=== PATIENT | male | born 1960 | race Caucasian/White ===

== ENCOUNTER → 2020-04-13 13:13 | Outpatient (BNVA) | payer BC, SELFPAY | PROVIDERS: PCP Internal Medicine; Referring Provider Internal Medicine; Visit Provider Internal Medicine Cardiovascular Disease | DX: Z76.89 Persons encountering health services in other specified circumstances (principal) ==

== ENCOUNTER → 2020-10-11 09:02 | Outpatient (BNVA) | payer BC, SELFPAY | PROVIDERS: Visit Provider Hospitalist ==

== ENCOUNTER → 2021-04-11 08:50 | Outpatient (BNVA) | payer BC, SELFPAY | PROVIDERS: PCP Internal Medicine; Referring Provider Internal Medicine; Visit Provider Internal Medicine Cardiovascular Disease | DX: I10 Essential (primary) hypertension (principal); R06.00 Dyspnea, unspecified | CPT/HCPCS: 93005 ==

== ENCOUNTER 2021-06-12 06:50 | Outpatient (REF) | payer BC, SELFPAY ==
[2021-06-12 07:04] LABS: MANUAL DIFF FLAG NO
[2021-06-12 07:19] LABS: Basophils Absolute Auto 0.1 X10*3/uL (0.0-0.2); Basophils Percent Auto 1.1 % (0-2); Eosinophils Absolute Auto 0.4 X10*3/uL (0.0-0.4); Eosinophils Percent Auto 7.3 % (0-4); Hematocrit 46.1 % (42.0-52.0); Hemoglobin 15.1 g/dl (14.0-18.0); Imm Gran Abs Auto 0.01 X10*3/uL (0.00-0.03); Imm Gran Pct Auto 0.2 % (0.0-0.4); Lymphocytes Absolute Auto 2.3 X10*3/uL (1.2-4.9); Lymphocytes Percent Auto 43.7 % (20-40); Mean Corpuscular HGB Conc 32.8 g/dl (31.0-36.0); Mean Corpuscular Hemoglobin 28.4 pg (27.0-33.0); Mean Corpuscular Volume 86.8 fL (80.0-98.0); Mean Platelet Volume 11.1 fL (9.4-12.4); Monocytes Absolute Auto 0.5 X10*3/uL (0.1-1.2); Monocytes Percent Auto 10.1 % (2-11); Neutrophils Percent Auto 37.6 % (45-73); Platelet Count 206 X10*3/uL (160-400); Red Blood Count 5.31 X10*6/uL (4.60-5.80); Red Cell Distribution Width 12.8 % (11.0-16.0); White Blood Count 5.2 X10*3/uL (4.8-10.8)
[2021-06-12 07:30] LABS: Alanine Aminotransferase 23 U/L (0-40); Albumin Level 4.5 g/dL (3.5-5.0); Alkaline Phosphatase 78 U/L (39-117); Anion Gap 10 (12-20); Aspartate Amino Transferase 20 U/L (5-37); Bilirubin Total 0.6 mg/dL (0.0-1.0); Blood Urea Nitrogen 14 mg/dL (9-16); Calcium 9.9 mg/dL (8.4-10.2); Carbon Dioxide 30 mmol/L (22-29); Chloride 105 mmol/L (96-108); Cholesterol 247 mg/dL; Estimated Glomerular Filt Rate > 60; Glucose Random 97 mg/dL (60-115); HDL Cholesterol 50 mg/dL; LDL Cholesterol Calculated 181 mg/dl; Sodium 141 mmol/L (135-145); Total Protein 7.6 g/dL (6.5-8.0); Triglycerides 84 mg/dL
[2021-06-12 07:51] LABS: Prostate Specific Antigen Scr 1.72 ng/mL (<0.05-4.0)
[2021-06-12 07:53] LABS: Estimated Average Glucose 103 mg/dL; Hemoglobin A1c % 5.2 %
== END 2021-06-12 06:51 | disposition home or self-care (01) ==
LOC: HO.LAB 06:50
PROVIDERS: PCP Internal Medicine; Visit Provider Physician Assistant
DX: Z00.01 Encounter for general adult medical examination with abnormal findings (principal); Z12.5 Encounter for screening for malignant neoplasm of prostate
CPT/HCPCS: 36415; 80053; 80061; 83036; 84153; 85025

== ENCOUNTER 2021-06-19 12:22 | Outpatient (REF) | payer BC, SELFPAY ==
--- NOTE | ~2021-06-19 | CT_ITS ---
EXAMINATION: CT ABDOMEN AND PELVIS WITH CONTRAST CLINICAL INFORMATION: Lower abdominal pain. COMPARISON: Previous CT of the abdomen and pelvis August 2016. TECHNIQUE: Multidetector volumetric images were obtained from the superior aspect of the liver through the pubic symphysis following administration 85 mL of Omnipaque 350 intravenous contrast. Sagittal and coronal reformatted images were obtained on the technologist's workstation. Oral contrast: Yes This CT examination was performed using dose optimization techniques as appropriate, variously including the following: *Automated exposure control *Adjustment of mA and/or kV according to patient size (this includes techniques or standardized protocols for targeted exams where dose is matched to indication/reason for exam; i.e. extremities or head) *Use of iterative reconstruction technique DLP: 491 mGy-cm FINDINGS: LUNG BASES: There is a new 5 x 7 mm nodular density in the peripheral right lower lobe. Axial image 6 series 3. On sagittal and coronal reconstructed images , this is linear and may correspond to area of atelectasis. LIVER, GALLBLADDER, AND BILIARY TREE: The liver is normal in size, shape, and attenuation. No focal hepatic lesion or biliary ductal dilatation is present. The gallbladder is unremarkable with no evidence of radiopaque gallstones, gallbladder wall thickening, or obvious pericholecystic inflammatory changes. PANCREAS: Unremarkable. SPLEEN: Unremarkable. ADRENAL GLANDS: Unremarkable. KIDNEYS AND URETERS: The kidneys are normal in size, shape, and attenuation. No hydronephrosis, hydroureter, or calculi seen. No perinephric stranding. BLADDER: Not optimally distended. GASTROINTESTINAL TRACT: Surgical staple line seen in the proximal sigmoid colon. The small and large bowel are otherwise unremarkable. The appendix is unremarkable. There is question of wall thickening of proximal stomach. This is similar-appearing to 2017 exam and may be related to the contour of the stomach. ABDOMINAL WALL: Bilateral inguinal hernias containing fat, left greater than right. Small umbilical hernia containing fat. LYMPH NODES: Normal. VASCULAR: Unremarkable. PELVIC VISCERA: Unremarkable. OSSEOUS STRUCTURES: Degenerative changes of the spine. CT/CT abdomen pelvis w con IMPRESSION: Bilateral inguinal hernias containing fat. Small umbilical hernia containing fat. Postsurgical changes to the proximal sigmoid colon. Question wall thickening of the proximal stomach. Similar appearing to 2017 exam and may be related to the contour of the stomach. This could be better evaluated with endoscopy or upper GI clinically indicated. Fleischner guidelines were followed.
[2021-06-19] MEDS: Barium Sulfate Oral (Berry) 450 ML ORAL.SUSP 900 ML PO (15:35)
[2021-06-19] MEDS: iohexoL 350 MG/ML 100 ML INFUS..BTL IV (15:36)
== END 2021-06-19 12:23 | disposition home or self-care (01) ==
LOC: HO.CT 12:22
PROVIDERS: Visit Provider Physician Assistant
DX: R10.30 Lower abdominal pain, unspecified (principal)
CPT/HCPCS: 74177; Q9967

== ENCOUNTER 2021-10-12 07:59 | Outpatient (REF) | payer BC, SELFPAY ==
--- NOTE | 2021-10-12 14:24 | PFT_ITS ---
Forced vital capacity 97% and FEV1 73%. FEV1/FVC ratio is 57, which is moderately decreased. FEF 25-75 36% and MVV is 85%. Post-bronchodilator therapy, there is small, but significant improvement in FEV1 and FEF 25-75. Total lung capacity 100%. Residual volume 101%. Diffusion capacity 84%. CONCLUSION: Moderately severe obstructive airway disorder. Partial reversibility after bronchodilator therapy is noted. 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 Clinical correlation is recommended. MD VIOLETA Trujillo/MODL / [id number]
== END 2021-10-12 08:00 | disposition home or self-care (01) ==
LOC: HO.RESP 07:59
PROVIDERS: PCP Internal Medicine; Visit Provider Hospitalist
DX: J44.9 Chronic obstructive pulmonary disease, unspecified (principal)
CPT/HCPCS: 94060; 94727; 94729

== ENCOUNTER 2021-10-23 10:12 | Outpatient (REF) | payer BC, SELFPAY ==
--- NOTE | ~2021-10-23 | CT_ITS ---
EXAMINATION: CT CHEST WITHOUT CONTRAST CLINICAL INFORMATION: Abnormal lung findings. COMPARISON: CT chest 08/27/2019 TECHNIQUE: Multidetector volumetric CT imaging of the chest was done. Axial MIP volume rendering provided. Sagittal and coronal reformatted images were obtained. This CT examination was performed using dose optimization techniques as appropriate, variously including the following: *Automated exposure control *Adjustment of mA and/or kV according to patient size (this includes techniques or standardized protocols for targeted exams where dose is matched to indication/reason for exam; i.e. extremities or head) *Use of iterative reconstruction technique DLP: 211 mGy-cm FINDINGS: TRIMMER OPERATOR: Unremarkable. LUNGS: There is centrilobular emphysema without acute pneumonic process. There is a 2 mm calcified right apical nodule axial image 90/7, 7 mm pleural-based noncalcified nodule right lower lobe axial image 240/7, 2 mm calcified nodule left lower lobe, 2 mm calcified nodule right lower lobe axial image 396/7. MEDIASTINUM: The thyroid lobes are symmetric and normal. The central trachea and the bronchi widely patent. Heart size and the great vessels are normal caliber. No pericardial effusion seen. Mild coronary artery calcifications are seen. PLEURA: There is no pleural effusion. No pleural mass or thickening. AXILLA: Small shotty lymph nodes are seen in the axilla. UPPER ABDOMEN: Visualized liver, spleen, pancreas and bilateral adrenal glands are unremarkable. OSSEOUS STRUCTURES: No aggressive lytic or sclerotic process seen. There is mild spondylosis lower dorsal spine. CT/CT chest wo con IMPRESSION: Centrilobular emphysema with small calcified and solitary noncalcified right lower lobe nodules. They are stable to last exam. No new nodules seen. Fleischner guidelines were followed.
== END 2021-10-23 10:13 | disposition home or self-care (01) ==
LOC: HO.CT 10:12
PROVIDERS: PCP Internal Medicine; Visit Provider Hospitalist
DX: R91.8 Other nonspecific abnormal finding of lung field (principal); J44.9 Chronic obstructive pulmonary disease, unspecified
CPT/HCPCS: 71250

== ENCOUNTER 2021-12-11 05:59 | Day surgery (SDC) | payer BC, SELFPAY ==
[2021-12-05 13:26] VITALS: BMI 29.7
--- NOTE | 2021-12-10 09:08 | HO.ANESPROP2 ---
Documented by User: Arlyn Nguyen NP 12/10/21 09:11 HPI - Anesthesia Eval Consult details Narrative: 61yo M for Bilateral Hernia Repair Inguinal PMFSH Active Problems Active Problems: All Active Problems (Updated 12/05/21 @ 13:24 by Olya Bella RN) Hypertension (Acute) [place] (dyspnea on exertion) (Acute) Hyperlipidemia (Acute) Inguinal hernia (Acute) Bilateral inguinal hernia (Acute) Pulmonary nodules (Acute) COPD (chronic obstructive pulmonary disease) (Acute) Past Medical History Medical History (Updated 12/05/21 @ 13:24 by Olya Bella RN) Bilateral inguinal hernia Chest pain COPD (chronic obstructive pulmonary disease) Diverticulitis Pulmonary nodules Family History Family History Father Prostate cancer Mother Heart problem CVD (cardiovascular disease) Arthritis Surgical History Surgical History (Updated 12/05/21 @ 13:21 by Olya Bella RN) H/O colonoscopy H/O hemorrhoidectomy H/O rotator cuff surgery History of colon resection History of hand surgery Hx of cardiac cath Social History Social History Alcohol intake: current Alcohol intake frequency: a few times a week Alcohol type: beer Patient Tobacco Use Status: Former Tobacco user Quit Date: 2000 Years Smoked: 35 +/- Use of substances other than those prescribed or required for medical reasons: Yes Substance Use Frequency: Daily Are you DNR?: No Advance Directives: No Advance Directives Information Provided: Yes Meds Allergies Allergy/AdvReac Type Severity Reaction Status Date / Time No Known Allergies Allergy Verified 10/12/21 14:33 [No Known Allergies*] Home Medications Medication Instructions Recorded Confirmed Last Taken Type amlodipine 5 mg tablet 5 mg PO DAILY 04/13/20 12/05/21 12/11/21 History isosorbide mononitrate 30 mg 30 mg PO DAILY 04/13/20 12/05/21 12/11/21 History tablet,extended release 24 hr Exam Exam Date and Time: December 10, 2021 0908 Height,Weight and Vital Signs: Height 6 ft Weight 99.337 kg Narrative Narrative: EKG 04/2021 Sinus rhythm 69 beats per minute, normal axis, nonspecific T-wave changes, QT interval 437 milliseconds Per 04/2021 Cardiology visit stress testing and cardiac catheterization which did not show any significant issues.? He also a right heart catheterization because he continued to have dyspnea despite treatment for lung issues.? Right heart catheterization was also normal. Assessment and Plan Assessment Anesthesia Assessment: Chart Reviewed Documented by User: Alex Alex MD 12/11/21 16:47 [facility] Past Medical History Medical History (Updated 12/05/21 @ 13:24 by Olya Bella RN) Bilateral inguinal hernia Chest pain COPD (chronic obstructive pulmonary disease) Diverticulitis Pulmonary nodules Family History Family History Father Prostate cancer Mother Heart problem CVD (cardiovascular disease) Arthritis Family history of problems with anesthesia: No Surgical History Surgical History (Updated 12/05/21 @ 13:21 by Olya Bella RN) H/O colonoscopy H/O hemorrhoidectomy H/O rotator cuff surgery History of colon resection History of hand surgery Hx of cardiac cath History of Problems with Anesthesia: No Social History Social History Alcohol intake: current Alcohol intake frequency: a few times a week Alcohol type: beer Patient Tobacco Use Status: Former Tobacco user Quit Date: 2000 Years Smoked: 35 +/- Use of substances other than those prescribed or required for medical reasons: Yes Substance Use Frequency: Daily Are you DNR?: No Advance Directives: No Advance Directives Information Provided: Yes Meds Allergies Allergy/AdvReac Type Severity Reaction Status Date / Time No Known Allergies Allergy Verified 10/12/21 14:33 [No Known Allergies*] Home Medications Medication Instructions Recorded Confirmed Last Taken Type amlodipine 5 mg tablet 5 mg PO DAILY 04/13/20 12/05/21 12/11/21 History isosorbide mononitrate 30 mg 30 mg PO DAILY 04/13/20 12/05/21 12/11/21 History tablet,extended release 24 hr Exam Airway Mallampati Class: III TM Dist: >3cm Neck ROM: Full Partial: Upper and Lower Loose/Missing/Broken Teeth: Yes (Poor dentition overall ) Heart: S1,S2 Lungs: b/l breath sounds Assessment and Plan Assessment Anesthesia Assessment: Anesthesia Plan Discussed Final Anesthetic Review Family History of Problems with Anesthesia: No History of Problems with Anesthesia: No NPO: Yes ASA Class: III Final Preanesthetic Review: Meds/Allgs Chart Reviewed, Consent Obtained/Reviewed and Anes Risks/Benef Reviewed Patient Risk: Intermediate Procedure Risk: Intermediate Anesthetic Plan Anesthetic Plan: GA Disposition: Standard PACU
[2021-12-11] VITALS (9 sets, daily range): BP systolic 134–163; BP diastolic 69–106; PULSE 55–80; RESP 16; TEMP 36.1; O2SAT 93–98
[2021-12-11] MEDS: Lactated Ringers 1,000 ML 100 ML IVCONT (06:42)
--- NOTE | 2021-12-11 07:13 | MHC.SHP ---
Pre-Procedural Eval Section A Date of Service: 12/11/21 Section B Chief Complaint: inguinal hernia Details of Present Illness: has bilateral inguinal hernias, both reducible Relevant Family History (Specify if Yes): No Relevant Social History: Tobacco Use Present Medications: see Short Stay Collaborative assessment Medical History: Significant History (HTN, COPD) Allergies: Allergies Allergy/AdvReac Type Severity Reaction Status Date / Time No Known Allergies Allergy Verified 10/12/21 14:33 [No Known Allergies*] Review of Systems Sugical H&P ROS: Negative: Constitution, Cardiovascular, Respiratory, Neurological, Psychiatric, Hem-Onc, Allergic/Immunologic, Gastrointestinal, Genitourinary, Musculoskeletal, Integumentary, Endocrine and Eyes/Ears/Nose/Throat Exam Surgical H&P Exam: Normal: HEENT, Normal: Heart, Normal: Lungs, Normal: Extremities, Normal: Skin and Normal: Neurological and Significant Findings: Abdomen (inguinal hernia, bilateral) Plan Diagnosis/Plan: Unchanged I have reviewed the history and physical and performed a pertinent physical examination on my patient. No changes have occurred unless specified.
--- NOTE | 2021-12-11 09:16 | W.PM.OPN ---
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 He wanted these repaired. He understood the technique of repair with mesh. He was aware of the risks, benefits, and alternatives. He was brought to the operating room. HE was placed supine under general anesthesia via laryngeal mask airway. Both inguinal hernias were prepped and draped in the usual sterile fashion. A surgical time-out was done. The patient received cefazolin 2 g IV preoperatively I infiltrated the planned line of incision at left inguinal area with lidocaine 1%. I made a short incision using blade 15 and this was carried down through the full-thickness of the skin and subcutaneous fat using electrocautery. I dissected the external oblique aponeurosis and I was able to identify the external ring. I dissected the external ring to define this. I made an incision on the aponeurosis using blade 15 and extended this inferomedially to connect with the external ring. The inguinal canal was therefore entered. I applied hemostats at the edges of the divided aponeurosis. I bluntly dissected the underside of the aponeurosis to create a pocket for the mesh. I bluntly dissected the spermatic cord and its contents with my index finger until was able to pass a [place] drain around this. This [place] drain was used for retraction. I identified a large hernia on the anterior medial aspect of the cord. I bluntly dissected this off of the rest of the cord contents. I identified the vas deferens and the accompanying vessels and protected this during the dissection. I carefully the hernia contents until I was able to completely reduce this through the internal ring. This has were for an indirect hernia. I reinforced the internal ring with the plug. The plug was secured with Prolene 2 sutures to the shelving edge of the inguinal and laterally and the internal oblique superiorly and medially using the inner leaves of the plug I reinforced the floor of the canal with a keyhole mesh. The tails of the mesh were passed around the cord at the level of the internal ring and were secured together with Prolene 2 sutures. I flattened the mesh on the floor of the canal. I secured the mesh to the shelving edge of the inguinal ligament laterally, the internal oblique superiorly and medially and to the pubic ramus inferomedially. I irrigated. I removed the [place] drain. I closed the external oblique aponeurosis with a running Dexon 2-0 stitch to re-create the external ring. I reapposed the subcutaneous layer with Dexon 3-0 interrupted sutures. Skin closure was achieved with Dexon 4-0 subcuticular running sutures. I then proceeded to repair the inguinal hernia on the the right side. I repeated the same procedure as above. Again,I infiltrated the planned line of incision at left inguinal area with lidocaine 1%. I made a short incision using blade 15 and this was carried down through the full-thickness of the skin and subcutaneous fat using electrocautery. I dissected the external oblique aponeurosis and I was able to identify the external ring. I dissected the external ring to define this. I made an incision on the aponeurosis using blade 15 and extended this inferomedially to connect with the external ring. The inguinal canal was therefore entered. I applied hemostats at the edges of the divided aponeurosis. I bluntly dissected the underside of the aponeurosis to create a pocket for the mesh. I bluntly dissected the spermatic cord and its contents with my index finger until was able to pass a [place] drain around this. This [place] drain was used for retraction. I identified a large hernia on the anterior medial aspect of the cord. I bluntly dissected this off of the rest of the cord contents. I identified the vas deferens and the accompanying vessels and protected this during the dissection. I carefully the hernia contents until I was able to completely reduce this through the internal ring. This has were for an indirect hernia. I reinforced the internal ring with the plug. The plug was secured with Prolene 2 sutures to the shelving edge of the inguinal and laterally and the internal oblique superiorly and medially using the inner leaves of the plug I reinforced the floor of the canal with a keyhole mesh. The tails of the mesh were passed around the cord at the level of the internal ring and were secured together with Prolene 2 sutures. I flattened the mesh on the floor of the canal. I secured the mesh to the shelving edge of the inguinal ligament laterally, the internal oblique superiorly and medially and to the pubic ramus inferomedially. I irrigated. I removed the [place] drain. I closed the external oblique aponeurosis with a running Dexon 2-0 stitch to re-create the external ring. I reapposed the subcutaneous layer with Dexon 3-0 interrupted sutures. Skin closure was achieved with Dexon 4-0 subcuticular running sutures. I then infiltrated the incisions with Marcaine 0.5% for postop analgesia. Steri-Strips and dressings were applied. the procedure was then completed The patient tolerated procedure well. There were no complications noted. Initial and final counts of sponges and instruments were correct. Estimated blood loss was about 25 cc. The patient was extubated without difficulty and transferred to the recovery room with stable vital signs.
[2021-12-11] MEDS: oxyCODONE HCl Immed Release 5 MG TABLET PO (09:33)
== END 2021-12-11 12:17 | disposition home or self-care (01) ==
PROVIDERS: PCP Internal Medicine; Visit Provider Surgery
PROC: (CPT 49505; principal; 2021-12-11 07:30)
DX: K40.20 Bilateral inguinal hernia, without obstruction or gangrene, not specified as recurrent (principal); J44.9 Chronic obstructive pulmonary disease, unspecified; I10 Essential (primary) hypertension; R91.8 Other nonspecific abnormal finding of lung field; Z90.49 Acquired absence of other specified parts of digestive tract; Z87.19 Personal history of other diseases of the digestive system; Z79.899 Other long term (current) drug therapy; Z98.890 Other specified postprocedural states; Z87.891 Personal history of nicotine dependence
CPT/HCPCS: 49505; C1781; J0690; J1100; J2250; J2405; J3010

== ENCOUNTER → 2022-04-05 14:50 | Outpatient (BNVA) | payer OTHER, SELFPAY | PROVIDERS: PCP Internal Medicine; Visit Provider Internal Medicine | DX: S60.122A Contusion of left index finger with damage to nail, initial encounter (principal); W22.8XXA Striking against or struck by other objects, initial encounter | CPT/HCPCS: 11740; 99202 ==

== ENCOUNTER → 2022-04-29 15:42 | Outpatient (BNVA) | payer BC, SELFPAY | PROVIDERS: Visit Provider Internal Medicine Cardiovascular Disease | DX: I10 Essential (primary) hypertension (principal); R06.00 Dyspnea, unspecified | CPT/HCPCS: 93005 ==

== ENCOUNTER 2022-12-09 13:12 | Outpatient (AMB) | payer OTHER, SELFPAY ==
[2022-12-09 13:14] VITALS: BMI 32.1
--- NOTE | 2022-12-09 13:14 | MHC.OFFVIS ---
Intake Vital Signs 12/09/22 13:14 Height 5 ft 11 in Weight 230 lb BMI 32.1 Intake Visit Reasons: Abd pain from hernia surgery Intake Note: This patient presents for an assessment for discomfort status post hernia surgery. Patient c/o; testicular discomfort, 2 hernias were repair still has 1 hernia, changes in bowel habits these past days, describes pain especially when doing heavy lifting. Transplant Nurse Required: No Accompanied by: Self / Same As Patient Allergies No Known Allergies [No Known Allergies*] Allergy (Verified 12/09/22 13:21) Medication List - Last Reconciled 12/09/22 by Medhat Powell MD albuterol sulfate 90 mcg/actuation 2 inhalations inhalation Q6H PRN 30 days amlodipine 5 mg PO DAILY [id number] 100-62.5-25 mcg (Trelegy Ellipta) 1 inh inhalation DAILY 30 days isosorbide mononitrate ER 30 mg PO DAILY HPI Abd pain from hernia surgery HPI Details 62-year-old male with repair of bilateral inguinal hernias a year ago, here because of the chronic lower abdominal pain. He says that he has had some some discomfort several months. He feels that his bowel movements are different as well. He also describes discomfort in his left testicle which he also had postoperatively. He says it usually happens when he is sitting down for prolonged periods of time. He says he is up-to-date with his screening colonoscopies. He had sigmoid resection in 2017 for diverticular disease. [facility] Medical History Bilateral inguinal hernia Chest pain Chronic bilateral lower abdominal pain COPD (chronic obstructive pulmonary disease) Diverticulitis Pulmonary nodules Surgical History H/O colonoscopy H/O hemorrhoidectomy H/O hernia repair H/O rotator cuff surgery History of bilateral inguinal hernia repair (~2021) History of colon resection History of hand surgery Hx of cardiac cath Family History Father Prostate cancer Mother Heart problem CVD (cardiovascular disease) Arthritis Social History Alcohol intake: current Alcohol intake frequency: a few times a month Alcohol type: beer Patient Tobacco Use Status: Former Tobacco user Quit Date: 2000 Years Smoked: 35 +/- Review of Systems Const Denies chills and Denies fever(s) Card Denies chest pain, Denies dyspnea and Denies dyspnea on exertion Resp Denies cough, Denies dyspnea and Denies dyspnea on exertion GI Denies hematochezia and Denies change in bowel habits Denies hematuria and Denies difficulty urinating Musc Denies back pain and Denies limited range of motion Neuro Denies focal weakness and Denies convulsions Psych Denies depression and Denies mood swings Physical Exam Vital Signs: BMI result Body Mass Index 32.1 Const General: comfortable and no acute distress Orientation/consciousness: patient oriented x3 Neck Neck: Yes no lymphadenopathy Resp Auscultation: clear to auscultation bilaterally Cardio Rhythm: regular rhythm GI Other: No palpable current inguinal hernias, no testicular masses, no significant tenderness on the testicles at this time Palpation (GI): Soft to palpation, nontender and no guarding Neuro General: patient oriented x3 Assessment & Plan Assessment & Plan (1) Chronic bilateral lower abdominal pain: Code(s): R10.31 - Right lower quadrant pain; R10.32 - Left lower quadrant pain; G89.29 - Other chronic pain Plan: I do not feel any palpable hernias at this time. I will send him for CT scan to work him up for chronic lower abdominal pain. He looks well otherwise and his exam is very benign. He denies significant GI complaints. I will see him in the office to review his CT scan findings Orders: Orders CT abdomen pelvis w IV con Today G89.29 - Other chronic pain, R10.31 - Right lower quadrant pain, R10.32 - Left lower quadrant pain Blood Urea Nitrogen Today G89.29 - Other chronic pain, R10.31 - Right lower quadrant pain, R10.32 - Left lower quadrant pain Creatinine Today G89.29 - Other chronic pain, R10.31 - Right lower quadrant pain, R10.32 - Left lower quadrant pain Coding Level of Care Code Est Pt Level 3 (34240) Diagnoses Chronic bilateral lower abdominal pain R10.31; R10.32; G89.29
== END 2022-12-09 13:33 | disposition home or self-care (01) ==
PROVIDERS: Visit Provider Surgery
DX: R10.31 Right lower quadrant pain (principal); R10.32 Left lower quadrant pain; G89.29 Other chronic pain
CPT/HCPCS: 99213

== ENCOUNTER 2022-12-09 13:12 | Outpatient (REF) | payer OTHER, SELFPAY ==
[2022-12-09 15:28] LABS: Blood Urea Nitrogen 21 mg/dL (9-16); Estimated Glomerular Filt Rate > 60
== END 2022-12-09 13:13 | disposition home or self-care (01) ==
LOC: CF 13:12
PROVIDERS: PCP Family Medicine; Visit Provider Surgery
DX: R10.31 Right lower quadrant pain (principal); R10.32 Left lower quadrant pain; G89.29 Other chronic pain; R19.4 Change in bowel habit; Z79.899 Other long term (current) drug therapy
CPT/HCPCS: 36415; 82565; 84520

== ENCOUNTER 2023-01-02 07:42 | Outpatient (REF) | payer OTHER, SELFPAY ==
--- NOTE | ~2023-01-02 | CT_ITS ---
EXAMINATION: CT ABDOMEN AND PELVIS WITH CONTRAST CLINICAL INFORMATION: Right lower quadrant pain COMPARISON: Previous CT scans most recent June 2021 TECHNIQUE: Multidetector volumetric images were obtained from the superior aspect of the liver through the pubic symphysis following administration 85 mL of Omnipaque 350 intravenous contrast. Sagittal and coronal reformatted images were obtained on the technologist's workstation. Oral contrast: Yes This CT examination was performed using dose optimization techniques as appropriate, variously including the following: *Automated exposure control *Adjustment of mA and/or kV according to patient size (this includes techniques or standardized protocols for targeted exams where dose is matched to indication/reason for exam; i.e. extremities or head) *Use of iterative reconstruction technique DLP: 595 mGy-cm FINDINGS: LUNG BASES: Scarring or subsegmental atelectasis at the lung bases, right greater than left. This is similar to June 2021 exam. LIVER, GALLBLADDER, AND BILIARY TREE: The liver is normal in size, shape, and attenuation. No focal hepatic lesion or biliary ductal dilatation is present. The gallbladder is unremarkable with no evidence of radiopaque gallstones, gallbladder wall thickening, or obvious pericholecystic inflammatory changes. PANCREAS: Unremarkable. SPLEEN: Unremarkable. ADRENAL GLANDS: Unremarkable. KIDNEYS AND URETERS: The kidneys are normal in size, shape, and attenuation. No hydronephrosis, hydroureter, or calculi seen. No perinephric stranding. BLADDER: Not optimally distended. GASTROINTESTINAL TRACT: Surgical changes to the sigmoid colon with surgical staple line. Small and large bowel is otherwise unremarkable. Normal appendix. History of wall thickening of the proximal stomach versus underdistention. This is similar to previous exams ABDOMINAL WALL: Small umbilical hernia containing fat. Small bilateral inguinal hernias containing fat no longer seen. LYMPH NODES: Normal. VASCULAR: Unremarkable. PELVIC VISCERA: Unremarkable. OSSEOUS STRUCTURES: Degenerative changes of the spine. CT/CT abdomen pelvis w IV con IMPRESSION: No acute findings. Postsurgical changes to the proximal sigmoid colon. Fleischner guidelines were followed.
[2023-01-02] MEDS: iohexoL 350 MG/ML 100 ML INFUS..BTL 85 ML IV (08:35)
== END 2023-01-02 07:43 | disposition home or self-care (01) ==
LOC: HO.CT 07:42
PROVIDERS: PCP Family Medicine; Visit Provider Surgery
DX: R10.31 Right lower quadrant pain (principal); R10.32 Left lower quadrant pain; G89.29 Other chronic pain
CPT/HCPCS: 74177; Q9967

== ENCOUNTER 2023-01-13 15:32 | Outpatient (AMB) | payer OTHER, SELFPAY ==
--- NOTE | 2023-01-13 15:42 | A.OFFVIS_ITS ---
Intake Intake Visit Reasons: Follow up CT results Intake Note: This patient presents for a follow-up assessment for Ct-Scan results. Patient denies changes or complaints at this time. 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 He had undergone bilateral inguinal hernia repair over a year ago and thinks this started after that. He denies any palpable mass on the groin. He denies urinary complaints. [facility] Medical History Bilateral inguinal hernia Chest pain Chronic bilateral lower abdominal pain COPD (chronic obstructive pulmonary disease) Diverticulitis Pulmonary nodules Surgical History H/O colonoscopy H/O hemorrhoidectomy H/O hernia repair H/O rotator cuff surgery History of bilateral inguinal hernia repair (~2021) History of colon resection History of hand surgery Hx of cardiac cath Family History Father Prostate cancer Mother Heart problem CVD (cardiovascular disease) Arthritis Social History Alcohol intake: current Alcohol intake frequency: a few times a month Alcohol type: beer Patient Tobacco Use Status: Former Tobacco user Quit Date: 2000 Years Smoked: 35 +/- Review of Systems Const Denies chills and Denies fever(s) Card Denies chest pain, Denies dyspnea and Denies dyspnea on exertion Resp Denies cough, Denies dyspnea and Denies dyspnea on exertion GI Denies hematochezia and Denies change in bowel habits Denies hematuria and Denies difficulty urinating Musc Denies back pain and Denies limited range of motion Neuro Denies focal weakness and Denies convulsions Psych Denies depression and Denies mood swings Physical Exam Const General: comfortable and no acute distress Resp Effort & Inspection: normal respiratory effort Cardio Rate: regular rate GI Other: no recurrent hernia on palpation Palpation (GI): Soft to palpation, not firm, nontender and no guarding Assessment & Plan Assessment & Plan (1) Chronic bilateral lower abdominal pain: Code(s): R10.31 - Right lower quadrant pain; R10.32 - Left lower quadrant pain; G89.29 - Other chronic pain Plan: He now describes mostly left testicular pain. I reviewed his CT scan and this does not show any intraabdominal or pelvic pathology. The hernia repair sites appear intact. I explained to him that his pain may be from fibrotic changes along the inguinal canal especially with the mesh repair. He did not want any prescription for narcotic pain meds. He says he will be fine without pain meds. He can ffup on a prn basis. Coding Level of Care Code Est Pt Level 3 (00288) Diagnoses Chronic bilateral lower abdominal pain R10.31; R10.32; G89.29
== END 2023-01-13 16:11 | disposition home or self-care (01) ==
PROVIDERS: PCP Family Medicine; Visit Provider Surgery
DX: R10.31 Right lower quadrant pain (principal); R10.32 Left lower quadrant pain; G89.29 Other chronic pain
CPT/HCPCS: 99213

== ENCOUNTER → 2023-01-13 15:32 | Outpatient (BNVA) | payer OTHER, SELFPAY | PROVIDERS: PCP Family Medicine; Visit Provider Surgery ==

== ENCOUNTER 2023-03-06 11:18 | Outpatient (AMB) | payer OTHER, SELFPAY ==
[2023-03-06 13:21] VITALS: BP 142/80; PULSE 82; TEMP 36.3; O2SAT 98
--- NOTE | 2023-03-06 13:21 | MHC.OFFWIV ---
Intake Vital Signs 03/06/23 13:21 Height 5 ft 11 in BP 142/80 H Blood Pressure Location Rt brachial Position Sitting Pulse 82 Pulse Source Pulse Oximeter Temp 97.4 F Temp Source Temporal Artery Scan Pulse Oximetry (%) 98 Intake Visit Reasons: EP, Left knee pain/swelling Intake Note: pt is here for due to left knee pain/swelling Patient Tobacco Use Status: Former Tobacco user Quit Date: 2000 Allergies No Known Allergies [No Known Allergies*] Allergy (Verified 03/06/23 13:22) Do you need a note to return to daycare/school/sports/work: Yes HPI HPI Comments History of Present Illness Details The patient presents to urgent care for evaluation of left knee pain. He states that he was carrying his puppy down the stairs and tripped over his other dog and in an attempt not to injure the puppy he was carrying he twisted his body to fall on his left side and believes he twisted his upper body and may have twisted his knee. He now complains of pain in that left knee which started to swell up while he was at work. It has become more painful since the incident. [facility] Medical History (Updated 03/06/23 @ 13:26 by Soumya Sylvester DO) Pain Chronic bilateral lower abdominal pain Chest pain Diverticulitis Bilateral inguinal hernia Pulmonary nodules COPD (chronic obstructive pulmonary disease) Surgical History H/O hernia repair History of bilateral inguinal hernia repair (~2021) History of colon resection H/O colonoscopy H/O rotator cuff surgery Hx of cardiac cath H/O hemorrhoidectomy History of hand surgery Family History Father Prostate cancer Mother Heart problem CVD (cardiovascular disease) Arthritis Social History Alcohol intake: current Alcohol intake frequency: a few times a month Alcohol type: beer Patient Tobacco Use Status: Former Tobacco user Quit Date: 2000 Years Smoked: 35 +/- Physical Exam Vital Signs: Last Vital Signs Temp 97.4 F 03/06/23 13:21 Pulse 82 03/06/23 13:21 BP 142/80 H 03/06/23 13:21 Pulse Ox 98 03/06/23 13:21 Const General: cooperative and healthy appearing Orientation/consciousness: patient oriented x3 Back/Spine/Pelvis Back: No back tenderness Skin General skin exam: no rashes or lesions noted Neuro General: patient oriented x3 Extrem Other: Knee: Moderately swollen diffusely. Tender to palpation Limited range of motion. No erythema induration or abrasions. No ligamentous instability appreciated. Tenderness with palpation, medial aspect No lower extremity edema Psych Attitude: cooperative Assessment & Plan Assessment & Plan (1) Pain: Code(s): R52 - Pain, unspecified Plan X-ray of the left knee reveals no obvious fracture/dislocation. There is an irregularity to what looks like either osteophyte or sesamoid. Unclear etiology. However patient will need knee immobilizer and crutches given the extent of swelling and pain. He likely tore a ligament in his knee. Patient will need follow-up with Orthopedics. He is hooked up with [facility] and will contact them. Orders: Orders XR knee LT 3V Today R52 - Pain, unspecified Coding Level of Care Code Est Pt Level 3 (07113) Diagnoses Pain R52
== END 2023-03-06 14:42 | disposition home or self-care (01) ==
PROVIDERS: PCP Family Medicine; Visit Provider Emergency Medicine
DX: R52 Pain, unspecified (principal)
CPT/HCPCS: 99213

== ENCOUNTER 2023-03-06 13:30 | Outpatient (REF) | payer OTHER, SELFPAY | END 2023-03-06 13:31 | disposition home or self-care (01) | LOC: HO.HMGCX 13:30 | PROVIDERS: Visit Provider Emergency Medicine | DX: M25.562 Pain in left knee (principal) | CPT/HCPCS: 73562 ==

== ENCOUNTER 2023-03-19 07:23 | Outpatient (REF) | payer OTHER, SELFPAY ==
--- NOTE | ~2023-03-19 | MR_ITS ---
EXAMINATION: MR KNEE WITHOUT CONTRAST, LEFT CLINICAL INFORMATION: Left knee pain. Recent fall with swelling. COMPARISON: Radiographs 03/06/2023. MRI 05/24/2014. TECHNIQUE: MRI of the knee without contrast was performed using routine sequences on a high-field scanner. FINDINGS: MENISCI: Medial Meniscus: Small oblique undersurface tear of the posterior horn extending to the junction with the meniscal body, new from previous MRI. Lateral Meniscus: Intact. LIGAMENTS: Cruciate: Intact. Collateral: Intact. EXTENSOR MECHANISM: Intact. ARTICULAR CARTILAGE/BONE: Patellofemoral Compartment: Mild cartilage along the central patella and peripheral aspect of the lateral patellar facet. Medial Compartment: Focal partial-thickness cartilage loss with subchondral degenerative marrow changes of the weightbearing femoral condyle. Cartilage thinning and surface irregularity along the lateral aspect of the weightbearing femoral condyle. These findings are slightly less conspicuous. There is prominent marrow edema of the medial tibial spine, posteromedial to the ACL insertion which may be degenerative or posttraumatic. There may be a tiny nondisplaced avulsion fracture demonstrated on coronal image 21. Lateral Compartment: Evolution of the osteochondral lesion involving the weightbearing femoral condyle. Underlying cysts have increased although surrounding marrow edema has decreased. There is a focal concavity that has slightly worsened, and contains a small low-signal/devitalized in situ fragment. Cartilage thinning of the tibia posteriorly. JOINT FLUID AND BURSAE: Small joint effusion and Denise's cyst. There is a 10 mm chondral fragment within the popliteus tendon sheath. MR/MR knee LT wo con IMPRESSION: 1. Small oblique undersurface tear of the posterior horn of the medial meniscus extending to the junction with the meniscal body, new from previous. 2. Evolution of the osteochondral lesion of the weightbearing lateral femoral condyle with a small in situ fragment as described. 3. Mild tricompartmental osteoarthritis with a small joint effusion and Denise's cyst. There is a 10 mm chondral fragment within the popliteus tendon sheath. 4. There is prominent marrow edema of the medial tibial spine, posteromedial to the ACL insertion which may be degenerative or posttraumatic. There may be a tiny nondisplaced avulsion fracture.
== END 2023-03-19 07:24 | disposition home or self-care (01) ==
LOC: HO.MRI 07:23
PROVIDERS: PCP Family Medicine; Visit Provider Physician Assistant
DX: M25.562 Pain in left knee (principal)
CPT/HCPCS: 73721

== ENCOUNTER 2023-04-01 08:19 | Outpatient (AMB) | payer OTHER, SELFPAY ==
[2023-04-01 08:28] VITALS: BP 138/78; PULSE 71; O2SAT 95; BMI 32.4
--- NOTE | 2023-04-01 08:28 | A.OFFVIS_ITS ---
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 He was originally seen for chest discomfort and shortness of breath. He has stress testing and cardiac catheterization which did not show any significant issues. He also a right heart catheterization because he continues to have dyspnea despite treatment for lung issues. Right heart catheterization was also normal. Since then he has been doing well. Recently underwent left shoulder surgery. He had showed arthritis because overuse of shoulder is being a leigh. He also has cervical spine issues for which she is waiting to undergo surgery. Right now is on restrictions to do any physical activity and is not doing any physical exercise. 10/11/2020 for the patient is here for p [facility] follow-up visit. Overall the patient has been doing well. He did have his cervical and also shoulder surgeries. He has recovered well and feels much better physically. His respiratory status has been stable. He has continued to use the Anoro with good effect. He has not had to use his rescue medication. We did review his laboratory data demonstrating some allergies specially to molds and trees and grasses. At this point clinically the patient does not have any allergy symptoms. We also reviewed his last CT scan of the chest demonstrating stable pulmonary nodules when compared to 2018. However he had some slight increased linear markings on the right hemithorax. In addition to that we did review his PFTs from August 2019 demonstrating mild obstructive ventilatory defect consistent mild COPD. Seems to be tolerating well the Anoro without any adverse effects. He is going to start exercising more regularly now that he has had recovery from his surgeries. At this point will have him continue with the res piratory medication. Plan to have him repeat an x-ray and will have him return in a year's time with pulmonary function studies. 10/12/2021 the patient is here for pulmon ilana follow-up visit. Overall the patient has been doing very well from a respiratory status. He continues use the Anoro daily. He has not required his rescue inhaler. He has been exercising more regularly. We did review his pulmonary function studies which demonstrated some slight interval improvement in his lung capacity which is very reassuring. it appears that his air trapping has resolved. the patient did develop abdominal discomfort sometime in the month of June of this year. He was evaluated in the ER. There he did undergo a CT scan of the abdomen. I did review the results. It appears that he has a 5 x 7 mm peripheral right-sided pulmonary nodule. The patient does have history of pulmonary nodules but this appears to be new when compared to previous imaging.. Therefore, I will request a formal CT scan of the chest in the coming months to follow up this abnormal finding. 01/22/2022 the patient is here for pulmon ilana follow-up visit. The patient does respond well to the Anoro. However when he is does not take it he does have worsening symptoms. He typically has chest tightness wheezing and coughing. He does have a rescue inhaler that he has to use intermittently. He does have a seasonal component. Also noted to have some eosinophilia usually during the winter months. We did review his CT scan of the chest again demonstrating pulmonary nodules largest measuring 7 mm in size. Patient also has emphysema. 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 He did have worsening respiratory symptoms while in that Micro environment. Today on examination he does have some increased wheezing. He will likely do better on inhaler with inhaled steroids. Therefore will switch him from Anoro to Trelegy at this time. His pulmonary nodules have not changed although he does have an intermediate size nodule that will need further follow-up. Therefore he will follow-up in a year's time with a repeat CT scan. 04/01/2023 the patient is here for a pul monary follow-up visit. The patient has been breathing well. 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 In addition to that he does complaint of difficulty swallowing sometimes specially solid food. A gets stuck in his esophagus and then he starts choking and coughing when he tries to drink something. She therefore the patient needs to have that better addressed. Will request a barium swallow. The patient also has pulmonary nodules. His last CT scan of the chest was back in September 2021 demonstrating calcified and noncalcified pulmonary nodules. They have not been evaluated since then. He needs to have a repeat CT scan at this time. Will have those done now. [facility] Medical History (Updated 03/06/23 @ 13:26 by Soumya Sylvester DO) Pain Chronic bilateral lower abdominal pain Chest pain Diverticulitis Bilateral inguinal hernia Pulmonary nodules COPD (chronic obstructive pulmonary disease) Surgical History H/O hernia repair History of bilateral inguinal hernia repair (~2021) History of colon resection H/O colonoscopy H/O rotator cuff surgery Hx of cardiac cath H/O hemorrhoidectomy History of hand surgery Family History Father Prostate cancer Mother Heart problem CVD (cardiovascular disease) Arthritis Social History Alcohol intake: current Alcohol intake frequency: a few times a month Alcohol type: beer Patient Tobacco Use Status: Former Tobacco user Quit Date: 2000 Years Smoked: 35 +/- Review of Systems Const Denies chills and Denies fever(s) ENT Reports dysphagia Card Denies chest pain, Denies dyspnea and Denies dyspnea on exertion Resp Reports cough, Denies dyspnea, Denies dyspnea on exertion and Reports wheezing GI Denies hematochezia, Denies change in bowel habits and Reports dysphagia Denies hematuria and Denies difficulty urinating Musc Denies back pain and Denies limited range of motion Neuro Denies focal weakness and Denies convulsions Psych Denies depression and Denies mood swings Aller/Immun Reports wheezing Physical Exam Vital Signs: Last Vital Signs Pulse 71 04/01/23 08:28 BP 138/78 04/01/23 08:28 Pulse Ox 95 04/01/23 08:28 Oxygen Delivery Method Room Air 04/01/23 08:28 BMI result Body Mass Index 32.4 Const General: alert Neck Neck: Yes normal visual inspection, Yes full ROM and Yes no lymphadenopathy Chest Chest palpation & inspection: normal inspection of the chest Resp Auscultation: no wheezes and diminished lung sounds Cardio Rate: regular rate Rhythm: regular rhythm Heart sounds: S1 normal heart sound present and S2 normal heart sound present GI Palpation (GI): Soft to palpation and nontender Auscultation: normal bowel sounds Skin General skin exam: rashes and/or lesions noted Assessment & Plan Assessment & Plan (1) Pulmonary nodules: Code(s): R91.8 - Other nonspecific abnormal finding of lung field (2) COPD (chronic obstructive pulmonary disease): Comment: the patient has evidence of obstructive airway disease. In part this is likely due to the time spent in a submarine where he was exposed to the inhalation of fumes. Code(s): J44.9 - Chronic obstructive pulmonary disease, unspecified Qualifiers: COPD type: chronic bronchitis Chronic bronchitis type: simple Qualified Code(s): J41.0 - Simple chronic bronchitis (3) COELHO (dyspnea on exertion): Code(s): R06.00 - Dyspnea, unspecified Plan continue Trelegy FOREIGN as needed Needs a Barium swallow CT chest now F/U 1 yr or sooner if any issues arise Orders: Orders CT chest wo IV con Today R91.8 - Other nonspecific abnormal finding of lung field FL barium swallow Today K21.9 - Gastro-esophageal reflux disease without esophagitis Medications: Refilled whnhanmpkur-bhokqrwaj-njfqqxdo 100-62.5-25 mcg (Trelegy Ellipta) 1 inh inhal ation DAILY 60 ea 11RF 30 days J44.9 - Chronic obstructive pulmonary disease, unspecified Coding Level of Care Code Est Pt Level 4 (27645) Diagnoses Pulmonary nodules R91.8 Simple chronic bronchitis J41.0 COPD type: chronic bronchitis Chronic bronchitis type: simple COELHO (dyspnea on exertion) R06.00 Time Spent (min) 16
== END 2023-04-01 08:45 | disposition home or self-care (01) ==
PROVIDERS: PCP Family Medicine; Visit Provider Hospitalist
DX: R91.8 Other nonspecific abnormal finding of lung field (principal); J41.0 Simple chronic bronchitis; R06.00 Dyspnea, unspecified
CPT/HCPCS: 99214

== ENCOUNTER → 2023-04-01 08:19 | Outpatient (BNVA) | payer OTHER, SELFPAY | PROVIDERS: PCP Family Medicine; Visit Provider Hospitalist ==

== ENCOUNTER 2023-04-23 07:27 | Outpatient (REF) | payer OTHER, SELFPAY ==
--- NOTE | ~2023-04-23 | CT_ITS ---
EXAMINATION: CT CHEST WITHOUT CONTRAST CLINICAL INFORMATION: Yearly surveillance COMPARISON: Previous CTs, most recent, 10/23/2021 TECHNIQUE: Multidetector volumetric CT imaging of the chest was done. Axial MIP volume rendering provided. Sagittal and coronal reformatted images were obtained. This CT examination was performed using dose optimization techniques as appropriate, variously including the following: *Automated exposure control *Adjustment of mA and/or kV according to patient size (this includes techniques or standardized protocols for targeted exams where dose is matched to indication/reason for exam; i.e. extremities or head) *Use of iterative reconstruction technique DLP: 219 mGy-cm FINDINGS: PROCUREMENT BUYER: Lower cervical spine surgical hardware. LUNGS: Trachea and bronchi are patent. Mild bronchial wall thickening. Centrilobular emphysema. Dependent left lower lobe atelectasis. Increasing RLL nodular subpleural density measuring 1.3 x 0.7 x 1.2 cm in the setting of underlying linear atelectasis. Stable 7mm subpleural, 7:286. Scattered 2mm or less pulmonary nodules. MEDIASTINUM: Unremarkable thyroid. No pathologic lymphadenopathy. Heart size within normal limits. No pericardial effusion. Nonaneurysmal aorta with atherosclerotic calcifications. Nonenlarged pulmonary arteries. CORONARY ARTERY CALCIFICATION: Mild. PLEURA: There is no pleural effusion. No pleural mass or thickening. AXILLA: No lymphadenopathy. UPPER ABDOMEN: Unchanged splenule. OSSEOUS STRUCTURES: Lower cervical surgical hardware. No suspicious osseous lesions. CT/CT chest wo IV con IMPRESSION: Increasing nodularity RLL, possibly atelectasis. 3-[address] follow up recommended. Fleischner guidelines were followed.
== END 2023-04-23 07:28 | disposition home or self-care (01) ==
LOC: HO.CT 07:27
PROVIDERS: PCP Family Medicine; Visit Provider Hospitalist
DX: R91.8 Other nonspecific abnormal finding of lung field (principal)
CPT/HCPCS: 71250

== ENCOUNTER 2023-04-28 15:33 | Outpatient (AMB) | payer OTHER, SELFPAY ==
[2023-04-28 15:46] VITALS: BP 132/86; PULSE 64; O2SAT 97; BMI 32.7
--- NOTE | 2023-04-28 15:46 | A.OFFVIS_ITS ---
Intake Vital Signs 04/28/23 15:46 Height 5 ft 11 in Weight 234 lb 2.095 oz BMI 32.7 BP 132/86 Blood Pressure Location Lt brachial Position Sitting Pulse 64 Pulse Source Pulse Oximeter Pulse Oximetry (%) 97 Oxygen Delivery Method Room Air Intake Visit Reasons: 1 carlos alberto morales Intake Note: Pt presents to the office today for a 1 year follow up. Pt states he is feeling well and denies any cardiac concerns at this time. Allergies No Known Allergies [No Known Allergies*] Allergy (Verified 04/28/23 15:51) Medication List - Last Reconciled 04/28/23 by Otis Naylor MD albuterol sulfate 90 mcg/actuation 2 inhalations inhalation Q6H PRN 30 days amlodipine 5 mg PO DAILY fluticasone propionate 50 mcg/actuation 1 spray intranasal BID wjqaknihqwr-aqepnasns-tbykpqro 100-62.5-25 mcg (Trelegy Ellipta) 1 inh inhalation DAILY 30 days isosorbide mononitrate ER 30 mg PO DAILY HPI HPI Comments History of Present Illness Details 62-year-old gentleman here for follow-up . He was originally seen for chest discomfort and shortness of breath. He has stress testing and cardiac catheterization which did not show any significant issues. He also a right heart catheterization because he continued to have dyspnea despite treatment for lung issues. Right heart catheterization was also normal. He underwent both shoulders surgery. He had shoulder arthritis because overuse of shoulders is being a leigh. Today he returns for follow-up. He is denying any chest discomfort. Continues gets shortness of breath with activities but able to do what he likes to do. 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 He has lung disease and follows with pulmonology closely. He is saying after his shoulder surgeries he had some issues with his back and overall he has not been as active as he was before. 04/28/23: He returns for f/u. He has un dergone multiple surgeries and is recovering from that. Unfortunately had a fall and had knee effusion which was drained. He is undergoing physiotherapy. He is denying any chest discomfort. Shortness of breath is stable and is due to underlying lung disease. [facility] Medical History Pain Chronic bilateral lower abdominal pain Chest pain Diverticulitis Bilateral inguinal hernia Pulmonary nodules COPD (chronic obstructive pulmonary disease) Surgical History H/O hernia repair History of bilateral inguinal hernia repair (~2021) History of colon resection H/O colonoscopy H/O rotator cuff surgery Hx of cardiac cath H/O hemorrhoidectomy History of hand surgery Family History Father Prostate cancer Mother Heart problem CVD (cardiovascular disease) Arthritis Alcohol intake: current Alcohol intake frequency: a few times a month Alcohol type: beer Patient Tobacco Use Status: Former Tobacco user Quit Date: 2000 Years Smoked: 35 +/- Physical Exam Vital Signs: Last Vital Signs Pulse 64 04/28/23 15:46 BP 132/86 04/28/23 15:46 Pulse Ox 97 04/28/23 15:46 Oxygen Delivery Method Room Air 04/28/23 15:46 BMI result Body Mass Index 32.7 GENERAL APPEARANCE: in no acute distress, well developed, well nourished. NECK/THYROID: no carotid bruit, no jugular venous distention. SKIN: no suspicious lesions, warm and dry. HEART: no murmurs, regular rate and rhythm, S1, S2 normal. LUNGS: clear to auscultation bilaterally. ABDOMEN: normal, bowel sounds present, soft, nontender, nondistended. EXTREMITIES: no clubbing, cyanosis, or edema. PERIPHERAL PULSES: equal. NEUROLOGIC: nonfocal, alert and oriented. PSYCH: mood/affect full range. Office Procedures EKG Details: Sinus rhythm 66 beats per minute, normal axis, nonspecific T-wave changes, QTC 457 milliseconds. [id number], Complete Assessment & Plan Assessment & Plan (1) Hypertension: Code(s): I10 - Essential (primary) hypertension (2) COELHO (dyspnea on exertion): Code(s): R06.00 - Dyspnea, unspecified Plan Pleasant 62 year gentleman who is here for follow-up. He has history of hypertension. Blood pressure control is good. He had dyspnea on exertion underwent cardiac catheterization in the past with revealed no coronary disease. His dyspnea is felt to be due to COPD. He is following with pulmonology. He has been stable on follow-up with us on multiple occasions. I have advised him to follow up with us as needed from here onwards. Thank you for allowing me to participate in the care of your patient. Please feel free to contact me if you have any questions. Coding Level of Care Code Est Pt Level 3 (87569) Diagnoses Hypertension I10 COELHO (dyspnea on exertion) R06.00 CPT Codes EKG - CPT: 07856-Mmdjyqmgpnpamhnon, Complete ([id number])
== END 2023-04-28 16:16 | disposition home or self-care (01) ==
PROVIDERS: PCP Family Medicine; Visit Provider Internal Medicine Cardiovascular Disease
DX: I10 Essential (primary) hypertension (principal); R06.00 Dyspnea, unspecified
CPT/HCPCS: 93010; 99213

== ENCOUNTER → 2023-04-28 15:33 | Outpatient (BNVA) | payer OTHER, SELFPAY | PROVIDERS: PCP Family Medicine; Visit Provider Internal Medicine Cardiovascular Disease | DX: I10 Essential (primary) hypertension (principal); R06.00 Dyspnea, unspecified | CPT/HCPCS: 93005 ==

== ENCOUNTER 2023-04-29 07:00 | Outpatient (RCR) | payer OTHER, SELFPAY | END 2023-06-17 10:25 | disposition home or self-care (01) | LOC: HO.PTCHIC 07:00 | PROVIDERS: PCP Family Medicine; Visit Provider Physician Assistant | DX: S83.242D Other tear of medial meniscus, current injury, left knee, subsequent encounter (principal) | CPT/HCPCS: 97110; 97112; 97163 ==

== ENCOUNTER 2023-10-16 11:07 | Outpatient (AMB) | payer OTHER, SELFPAY ==
[2023-10-16 11:32] VITALS: BP 140/80; PULSE 72; TEMP 36.6; O2SAT 98; BMI 32.8
--- NOTE | 2023-10-16 11:32 | AM.OFFWIN_ITS ---
Intake Vital Signs 10/16/23 11:32 Height 5 ft 11 in Weight 235 lb BMI 32.8 BP 140/80 H Blood Pressure Location Rt brachial Position Sitting Pulse 72 Pulse Source Pulse Oximeter Temp 97.8 F Temp Source Oral Pulse Oximetry (%) 98 Intake Visit Reasons: EST/ right shoulder inj (lobby) Intake Note: pt is here for right shoulder injury Patient Tobacco Use Status: Former Tobacco user Quit Date: 2000 Allergies No Known Allergies [No Known Allergies*] Allergy (Verified 10/16/23 11:32) Do you need a note to return to daycare/school/sports/work: No HPI HPI Comments History of Present Illness Details 63 y/o male patient who presents to walk in clinic with c/o right shoulder pain x 2 weeks. He was working with a Saw, drilling into concrete for hours. H/o Bilateral shoulder surgeries. Pt asking for MRI and does not want Xray today. Pt frustrated with the process, and states that Acetaminophen and Ibuprofen do not work. Declined Narcotics because they do not work either. Pt also reports that Physical Therapy never worked for him in the past, but willing to try. [facility] Medical History Pain Chronic bilateral lower abdominal pain Chest pain Diverticulitis Bilateral inguinal hernia Pulmonary nodules COPD (chronic obstructive pulmonary disease) Surgical History H/O hernia repair History of bilateral inguinal hernia repair (~2021) History of colon resection H/O colonoscopy H/O rotator cuff surgery Hx of cardiac cath H/O hemorrhoidectomy History of hand surgery Family History Father Prostate cancer Mother Heart problem CVD (cardiovascular disease) Arthritis Social History Alcohol intake: current Alcohol intake frequency: a few times a month Alcohol type: beer Patient Tobacco Use Status: Former Tobacco user Quit Date: 2000 Years Smoked: 35 +/- Review of Systems Const All systems reviewed & are unremarkable except as noted in HPI and below Physical Exam Vital Signs: Last Vital Signs Temp 97.8 F 10/16/23 11:32 Pulse 72 10/16/23 11:32 BP 140/80 H 10/16/23 11:32 Pulse Ox 98 10/16/23 11:32 BMI result Body Mass Index 32.8 Const General: comfortable and no acute distress Orientation/consciousness: patient oriented x3 Neuro General: patient oriented x3, gait normal and moves all extremities Extrem Right upper extremity: shoulder/upper arm (Limited ROM due to pain) Details: normal to inspection and tenderness; no swelling, no ecchymosis and no deformity Left upper extremity: normal to inspection and full ROM Psych Speech and movement: Normal speech and movement present and Psychomotor agitation in speech present Assessment & Plan Assessment & Plan (1) Right shoulder pain: Code(s): M25.511 - Pain in right shoulder Qualifiers: Chronicity: acute Qualified Code(s): M25.511 - Pain in right shoulder Plan: - Advised to take Pain medications - Ordered PT - Sent message for PCP to order MRI if indicated. Orders: Orders PT Evaluation and Treatment Today M25.511 - Pain in right shoulder Coding Level of Care Code Est Pt Level 3 (49156) Diagnoses Acute pain of right shoulder M25.511 Chronicity: acute Time Spent (min) 15
== END 2023-10-16 12:07 | disposition home or self-care (01) ==
PROVIDERS: PCP Family Medicine; Visit Provider Nurse Practitioner Family
DX: M25.511 Pain in right shoulder (principal)
CPT/HCPCS: 99213

== ENCOUNTER 2024-01-07 07:00 | Outpatient (RCR) | payer OTHER, SELFPAY | END 2024-01-08 14:57 | disposition home or self-care (01) | LOC: HO.PTCHIC 07:00 | PROVIDERS: PCP Family Medicine; Visit Provider Physician Assistant | DX: M67.813 Other specified disorders of tendon, right shoulder (principal) | CPT/HCPCS: 97014; 97110; 97140; 97162; 97164 ==

== ENCOUNTER 2024-11-18 08:00 | Outpatient (RCR) | payer OTHER, SELFPAY | END 2024-11-29 06:56 | disposition home or self-care (01) | LOC: HO.PTCHIC 08:00 | PROVIDERS: PCP Family Medicine; Visit Provider Orthopaedic Surgery | DX: M75.111 Incomplete rotator cuff tear or rupture of right shoulder, not specified as traumatic (principal); Z98.890 Other specified postprocedural states | CPT/HCPCS: 97110; 97140; 97162; 97164 ==

== ENCOUNTER 2025-01-21 08:00 | Outpatient (RCR) | payer OTHER, SELFPAY | END 2025-01-21 09:26 | disposition home or self-care (01) | LOC: HO.PTCHIC 08:00 | PROVIDERS: PCP Family Medicine; Visit Provider Orthopaedic Surgery | DX: M25.511 Pain in right shoulder (principal) | CPT/HCPCS: 97110; 97161; 97162 ==

== ENCOUNTER 2025-03-24 10:26 | Outpatient (AMB) | payer OTHER, SELFPAY ==
--- NOTE | 2025-03-24 10:29 | MHC.OFFVIS ---
Vital Signs 03/24/25 10:30 Height 5 ft 11 in Weight 233 lb 11.04 oz BMI 32.6 BP 144/80 H Blood Pressure Location Lt brachial Position Sitting Pulse 78 Pulse Source Pulse Oximeter Pulse Oximetry (%) 94 Oxygen Delivery Method Room Air Intake Visit Reasons: Gastroesophageal reflux disease (GERD) P D Driver Required: No Accompanied by: Self / Same As Patient Allergies No Known Allergies (No Known Allergies*) Allergy (Verified 03/24/25 10:33) HPI Comments Details: 64-year-old gentleman here for follow-up. He was originally seen for chest discomfort and shortness of breath. He has stress testing and cardiac catheterization which did not show any significant issues. He also a right heart catheterization because he continues to have dyspnea despite treatment for lung issues. Right heart catheterization was also normal. Since then he has been doing well. Recently underwent left shoulder surgery. He had showed arthritis because overuse of shoulder is being a eligh. He also has cervical spine issues for which she is waiting to undergo surgery. Right now is on restrictions to do any physical activity and is not doing any physical exercise. 10/11/2020 for the patient is here for pulmonary follow-up visit. Overall the patient has been doing well. He did have his cervical and also shoulder surgeries. He has recovered well and feels much better physically. His respiratory status has been stable. He has continued to use the Anoro with good effect. He has not had to use his rescue medication. We did review his laboratory data demonstrating some allergies specially to molds and trees and grasses. At this point clinically the patient does not have any allergy symptoms. We also reviewed his last CT scan of the chest demonstrating stable pulmonary nodules when compared to 2018. However he had some slight increased linear markings on the right hemithorax. In addition to that we did review his PFTs from August 2019 demonstrating mild obstructive ventilatory defect consistent mild COPD. Seems to be tolerating well the Anoro without any adverse effects. He is going to start exercising more regularly now that he has had recovery from his surgeries. At this point will have him continue with the respiratory medication. Plan to have him repeat an x-ray and will have him return in a year's time with pulmonary function studies. 10/12/2021 the patient is here for pulmonary follow-up visit. Overall the patient has been doing very well from a respiratory status. He continues use the Anoro daily. He has not required his rescue inhaler. He has been exercising more regularly. We did review his pulmonary function studies which demonstrated some slight interval improvement in his lung capacity which is very reassuring. it appears that his air trapping has resolved. the patient did develop abdominal discomfort sometime in the month of June of this year. He was evaluated in the ER. There he did undergo a CT scan of the abdomen. I did review the results. It appears that he has a 5 x 7 mm peripheral right-sided pulmonary nodule. The patient does have history of pulmonary nodules but this appears to be new when compared to previous imaging.. Therefore, I will request a formal CT scan of the chest in the coming months to follow up this abnormal finding. 01/22/2022 the patient is here for pulmonary follow-up visit. The patient does respond well to the Anoro. However when he is does not take it he does have worsening symptoms. He typically has chest tightness wheezing and coughing. He does have a rescue inhaler that he has to use intermittently. He does have a seasonal component. Also noted to have some eosinophilia usually during the winter months. We did review his CT scan of the chest again demonstrating pulmonary nodules largest measuring 7 mm in size. Patient also has emphysema. 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 He did have worsening respiratory symptoms while in that Micro environment. Today on examination he does have some increased wheezing. He will likely do better on inhaler with inhaled steroids. Therefore will switch him from Anoro to Trelegy at this time. His pulmonary nodules have not changed although he does have an intermediate size nodule that will need further follow-up. Therefore he will follow-up in a year's time with a repeat CT scan. 04/01/2023 the patient is here for a pulmonary follow-up visit. The patient has been breathing well. 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 In addition to that he does complaint of difficulty swallowing sometimes specially solid food. A gets stuck in his esophagus and then he starts choking and coughing when he tries to drink something. She therefore the patient needs to have that better addressed. Will request a barium swallow. The patient also has pulmonary nodules. His last CT scan of the chest was back in September 2021 demonstrating calcified and noncalcified pulmonary nodules. They have not been evaluated since then. He needs to have a repeat CT scan at this time. Will have those done now. 03/24/2025 the patient is here for pulmonary follow-up visit. Overall he is doing well although he did run out of medication he has been having increasing shortness of breath chest tightness and cough. Yyuo-gj-oxvrghrl severity. The Trelegy has been very affecting beneficial for him. I will make sure to send to the pharmacy. In the meantime he is last CT scan was back in 2022. The patient has underlying pulmonary nodules and he has not had any follow-up. Unfortunately he had issues with worker's comp what he has significant shoulder injury requiring surgery to his right shoulder and now going to be requiring surgery to his left shoulder. Then after that he may need surgery for his knees. Will try to get a CAT scan to follow-up with the pulmonary nodules since that is important. The patient otherwise doing well will continue with respiratory therapy and follow-up in a year's time. If the CAT scan finds any significant changes I will make sure to let him know. [facility] Medical History Pain Chronic bilateral lower abdominal pain Chest pain Diverticulitis Bilateral inguinal hernia Pulmonary nodules COPD (chronic obstructive pulmonary disease) Surgical History H/O hernia repair History of bilateral inguinal hernia repair (~2021) History of colon resection H/O colonoscopy H/O rotator cuff surgery Hx of cardiac cath H/O hemorrhoidectomy History of hand surgery Family History Father Prostate cancer Mother Heart problem CVD (cardiovascular disease) Arthritis Social History Alcohol intake: current Alcohol intake frequency: a few times a month Alcohol type: beer Patient Tobacco Use Status: Former Tobacco user Years Smoked: 35 +/- Review of Systems Const Denies chills and Denies fever(s) ENT Reports dysphagia Card Denies chest pain, Denies dyspnea and Denies dyspnea on exertion Resp Reports cough, Denies dyspnea, Denies dyspnea on exertion and Reports wheezing GI Denies hematochezia, Denies change in bowel habits and Reports dysphagia Denies hematuria and Denies difficulty urinating Musc Reports as per HPI, Reports myalgias, Reports arthralgias, Reports joint swelling and Reports limited range of motion Neuro Denies focal weakness and Denies convulsions Psych Denies depression and Denies mood swings Aller/Immun Reports wheezing Physical Exam Vital Signs: Last Vital Signs Pulse 78 03/24/25 10:30 BP 144/80 H 03/24/25 10:30 Pulse Ox 94 03/24/25 10:30 Oxygen Delivery Method Room Air 03/24/25 10:30 BMI result Body Mass Index 32.6 Const General: alert Neck Neck: Yes normal visual inspection, Yes full ROM and Yes no lymphadenopathy Chest Chest palpation & inspection: normal inspection of the chest Resp Auscultation: no wheezes and diminished lung sounds Cardio Rate: regular rate Rhythm: regular rhythm Heart sounds: S1 normal heart sound present and S2 normal heart sound present GI Palpation (GI): Soft to palpation and nontender Auscultation: normal bowel sounds Skin General skin exam: rashes and/or lesions noted Assessment & Plan Assessment & Plan (1) Pulmonary nodules: Code(s): R91.8 - Other nonspecific abnormal finding of lung field Category: Medical (2) COPD (chronic obstructive pulmonary disease): Comment: the patient has evidence of obstructive airway disease. In part this is likely due to the time spent in a submarine where he was exposed to the inhalation of fumes. Code(s): J44.9 - Chronic obstructive pulmonary disease, unspecified Category: Medical Qualifiers: COPD type: chronic bronchitis Chronic bronchitis type: simple Qualified Code(s): J41.0 - Simple chronic bronchitis (3) COELHO (dyspnea on exertion): Code(s): R06.00 - Dyspnea, unspecified Category: Medical Plan continue Trelegy FOREIGN as needed CT chest now F/U 1 yr or sooner if any issues arise Orders: Orders CT chest wo IV con Today R91.8 - Other nonspecific abnormal finding of lung field Medications: Refilled zwqvzwjfrlf-bakwkexft-ocscedmg 100-62.5-25 mcg (Trelegy Ellipta) 1 inh inhalation DAILY 60 ea 11RF 30 days J44.9 - Chronic obstructive pulmonary disease, unspecified albuterol sulfate 90 mcg/actuation 2 inhalations inhalation Q6H PRN 18 grams 12RF shortness of breath or wheezing 30 days J44.9 - Chronic obstructive pulmonary disease, unspecified Coding Level of Care Code Est Pt Level 4 (22233) Complex EM visit Add On G2211 Diagnoses Pulmonary nodules R91.8 Simple chronic bronchitis J41.0 COPD type: chronic bronchitis Chronic bronchitis type: simple COELHO (dyspnea on exertion) R06.00 Time Spent (min) 17
[2025-03-24 10:30] VITALS: BP 144/80; PULSE 78; O2SAT 94; BMI 32.6
--- OUTSIDE RECORDS SUMMARY | 2025-03-24 12:33 | XMS_ITS | Encounter Summary ---
Author Organization [facility] Address [address] [place] [address] Phone Care Team Providers Care Robotics Engineer Name Role Phone Tamiko May Primary Care Provide r Baldemar Gonzalez MD Unavailable [phone] Jordan Hurtado MD Unavailable [phone] Monik Drake MD Primary Care Provid er Cherie Tomlinson MD Primary Care Provider Encounter Details Date Type Department Care Team (Late st Contact Info) Description 01/11/2020 Ancillary Orders [facility],Outside Imaging [address] [place] [address] System, Provider Not In, [place] [address] Social History Tobacco Use Types Packs/Day Years Used Date Smoking Tobacco: Former Cigarettes 2 20 0 09/02/1980 - 09/02/2000 Smokeless Tobacco: Never Alcohol Use Standard Drinks/Week Comments Yes 0 (1 standard drink = 0.6 oz pur e alcohol) Sex and Gender Information Value Date Recorded Sex Assigned at Not on file Legal Sex Male 11:39 AM EDT Gender Identity Not on file Sexual Orientation Not on file Occupation Industry Job Start Date Job End Date lu Not on file Not on file Not on file documented as of this encounter Plan of Treatment Not on file documented as of this encounter Results * MRI Neck Outside (No Interpretation) (06/04/2018 12:00 AM EST) Narrative SYSTEMGENERATED, DOCUMENTATION - 01/11/2020 11:05 AM EDT This study is for PACS storage only and not for interpretation. us Provider Not In System PhD IMG OUTSIDE IMAGING W /OUT INTERPRETATION Final Result * XR SPINE OUTSIDE(NO INTERPRETATION) (03/02/2018 12:00 AM EDT) Narrative SYSTEMGENERATED, DOCUMENTATION - 01/11/2020 11:06 AM EDT This study is for PACS storage only and not for interpretation. us Provider Not In System PhD IMG OUTSIDE IMAGING W /OUT INTERPRETATION Final Result documented in this encounter Visit Diagnoses Not on filedocumented in this encounter Additional Health Concerns Assessment Noted Time PHQ-2 Depression Total Score: 0 11/24/19 20 8:41 AM EDT documented as of this encounter Care Teams Robotics Engineer Relationship Specialty Start Date End Date Tamiko May PA [address] [place] [phone] [email or web address] PCP - General 09/01/18 11/01/21 Monik Drake MD [address] [place] [phone] [email or web address] PCP - General Family Medicine 11/02/21 04/21/22 Cherie Tomlinson MD [address] [place] [phone] PCP - General Family Medicine 04/22/22 Baldemar Gonzalez MD [address] [place] [phone] [email or web address] Insurance Assigned Provider 12/05/1811/05/20 Jordan Hurtado MD [address] [place], [place] [id number] [place] [address] [email or web address] Insurance Assigned Provider 11/05/2008/10 documented as of this encounter Additional Source Comments The information contained in this document represents components of the legal health record. It is not the complete legal health record.[facility]
--- OUTSIDE RECORDS SUMMARY | 2025-03-24 12:33 | XMS_ITS | Encounter Summary ---
Author Organization [facility] Address [address] [place] [address] Phone Care Team Providers Care System Operator Name Role Phone Tamiko May Primary Care Provide r Baldemar Gonzalez MD Unavailable [phone] Jordan Hurtado MD Unavailable [phone] Monik Drake MD Primary Care Provid er Cherie Tomlinson MD Primary Care Provider [phone] Encounter Details Date Type Department Care Team (Late st Contact Info) Description 01/05/2020 Procedure Pass [facility], [address] [address] Social History Tobacco Use Types Packs/Day Years [...] on file documented as of this encounter Last Filed Vital Signs Vital Sign Reading Time Taken Comments Blood Pressure - - Pulse - - Temperature - - Respiratory Rate - - Oxygen Saturation - - Inhaled Oxygen Concentration - - Weight 97.5 kg (215 lb) 01/08/2020 1:11 PM EDT Height 180.3 cm (5' 11 ) 01/08/2020 1:11 PM EDT Body Mass Index 29.99 01/08/2020 1:11 PM EDT documented in this encounter Plan of Treatment Not on file documented as of this encounter Visit Diagnoses Not on filedocumented in this encounter Additional Health Concerns Assessment Noted Time PHQ-2 Depression Total Score: 0 11/24/19 20 8:41 AM EDT documented as of this encounter Care Teams System Operator Relationship Specialty Start Date End Date Tamiko May PA [address] [place] [phone] [email or web address] PCP - General 09/01/18 11/01/21 Monik Drake MD [address] [place] [address] [place] [phone] [email or web address] PCP - General Family Medicine 11/02/21 04/21/22 Cherie Tomlinson MD [address] [place] [phone] PCP - General Family Medicine 04/22/22 Baldemar Gonzalez MD [address] [place] [address], [address] [place] [phone] [email or web address] Insurance Assigned Provider 12/05/1811/05/20 Jordan Hurtado MD [address] [place] [address], [address] [place] [address] [email or web address] Insurance Assigned Provider 11/05/2008/10 documented as of this encounter Additional Source Comments The information contained in this document represents components of the legal health record. It is not the complete legal health record.[facility]
--- OUTSIDE RECORDS SUMMARY | 2025-03-24 12:33 | XMS_ITS | Clinical Summary ---
Author Organization [facility] Address [address] [address] Phone Care Team Providers Care Life Coach Name Role Phone Cherie Tomlinson MD Primary Care Provider Allergies No known active allergies Medications isosorbide mononitrate (IMDUR) 30 MG 24 hr tablet Take 1 tablet (30 mg total) by mouth daily. 90 tablet 3 05/18/2021 Active amLODIPine (NORVASC) 5 MG tablet Take 1 tablet (5 mg total) by mouth daily. 90 tablet 3 05/18/2021 Active ANORO ELLIPTA 62.5-25 mcg/actuation diskus inhaler INHALE 1 PUFF BY MOUTH DAILY 07/31/2021 Active TRELEGY ELLIPTA 100-62.5-25 mcg inhalation powder Inhale 1 puff into the lungs daily. 04/01/2022 Active Active Problems Problem Noted Date Diagnosed Date Chronic pain of left thumb 08/20/2021 Chronic pain of right elbow 08/20/2021 Lower abdominal pain 05/18/2021 Assessment & Plan (08/20/2021 5:20 PM EDT): New problem ongoing for the past 5-6 months. Not progressing. Underwent CT abdomen/pelvis at [facility] in Jun. We have not received results -will request results sruthi. Assessment & Plan (05/18/2021 2:04 PM EST): New problem. Concerning given he feels this is similar to the pain he had been having when he developed diverticulitis with abscess which eventually led to perforation and and sigmoid resection in 2017. Abdominal exam today is unremarkable. -given this history will proceed with CT abdomen/pelvis at [facility] -reviewed he should go to the ED at any time for fever, severe abdominal pain, nausea/vomiting and severe diarrhea and he voiced understanding Encounter for routine adult health examination with abnormal findings 03/10/2020 Assessment & Plan (05/18/2021 1:59 PM EST): Labs: cbc/cmp/lipids/a1c and psa screen ordered Cscope: utd per pt. Will request records from Dr. Powell in [place]. Pt states next due in 2026 Immunizations: tetanus booster due 2026. utd on flu and covid-19 vaccinations. Will request records from pharmacy. Follow up annually for CPE Assessment & Plan (03/10/2020 1:47 PM EDT): Labs: cbc/cmp/lipids/a1c/hiv/hep c and psa screen ordered Cscope: utd per pt. Will request records from Dr. Powell in [place]. Pt states next due in 2026 Immunizations: flu shot given today. Next tetanus due 2026 Follow up annually for CPE S/P rotator cuff surgery 11/24/2019 Assessment & Plan (08/20/2021 5:19 PM EDT): Advised follow up with surgeon at [facility] concerning possible re-injury of the shoulder Assessment & Plan (11/24/2019 9:20 AM EDT): Following with ABRAN velazquez. Scheduled for MRI on 12/06/19 and surgery on 12/20/19. -will call back if he needs new referral for insurance purposes and I will place that Essential hypertension 12/14/2018 Assessment & Plan (05/18/2021 1:58 PM EST): Continues to follow with Dr. Greenberg -continue on amlodipine 5mg daily -continue on imdur 30mg daily Assessment & Plan (06/08/2020 12:44 PM EST): Continues to follow with Dr. Greenberg -continue on amlodipine 5mg daily -continue on imdur 30mg daily Assessment & Plan (03/10/2020 1:52 PM EDT): Continues to follow with Dr. Greenberg -EKG today shows PVC with trigeminy -continue on amlodipine 5mg daily -continue on imdur 30mg daily Assessment & Plan (11/24/2019 9:22 AM EDT): Doing well currently on norvasc 5mg daily and imdur 30mg daily. Continues to follow with Dr. Cardona at [facility]. Panlobular emphysema 12/14/2018 Assessment & Plan (08/20/2021 5:19 PM EDT): Chronic and stable on anoro. -continues to follow with Dr. Flores, child psychometrist at [facility] and has CT scans through [facility] as well Assessment & Plan (05/18/2021 2:03 PM EST): Chronic and stable on anoro. -continues to follow with Dr. Flores, child psychometrist at [facility] and has CT scans through [facility] as well Assessment & Plan (06/08/2020 12:44 PM EST): stable on anoro. -continues to follow with child psychometrist at [facility] Assessment & Plan (03/10/2020 1:52 PM EDT): Doing well on anoro -continues to follow with child psychometrist at [facility] Assessment & Plan (11/24/2019 9:21 AM EDT): Doing well currently on anoro once daily. Continues to follow with child psychometrist Cervical spinal stenosis 12/14/2018 Assessment & Plan (06/08/2020 11:13 AM EST): Scheduled for ACDF C5-[address] Jo on 06/21/2020. -EKG done w/in 6 months shows PVCs (chronic) and is otherwise normal -pre-op labs ordered -will fax packet back to Dr. Jo's office and patient will proceed with surgery as planned Assessment & Plan (03/10/2020 1:51 PM EDT): Will plan to continue following with [facility] for injections and Dr. Jo if he desires surgical intervention down the road Assessment & Plan (11/24/2019 9:21 AM EDT): Will place referral to Dr. Jo for consult. Will request [facility] notes and MRI from [facility] to send over as well. Tear of right rotator cuff 12/14/2018 Overview (11/24/2019): [place] repair with [place] [facility] in fall 2018 Immunizations Immunization Administration Dates Next Due INFLUENZA, SPLIT VIRUS, TRIVALENT PF 03/02/2018, 05/16/2017,04/11/2016 Influenza Quadrivalent Preservative Free IM 03/02 Influenza Recombinant Rosaura valent Preservative Free IM 03/10/2020 Influenza Split (Incl. Purif ied Surface Antigen) 03/25/2016,03/11/2016 Pneumococcal polysaccharide PPSV23 06/29/2018 Tdap 03/05/2017 Family History Medical History Relation Comments Suicide Father Cancer Maternal Grandmother unsure of t ype Heart disease Mother Hyperlipidemia Mother Cancer Paternal Grandmother unsure of t ype Relation Status Comments Daughter Alive Father Maternal Grandmother Mother Paternal Grandmother Sister Alive Social History Tobacco Use Types Packs/Day Years Used Date Smoking Tobacco: Former Cigarettes 2 20 0 09/02/1980 - 09/02/2000 Smokeless Tobacco: Never Alcohol Use Standard Drinks/Week Comments Yes 0 (1 standard drink = 0.6 oz pur e alcohol) Child or Family Care Answer Date Record ed Do you have problems with on e of the following making it difficult for you to work, study, or receive health care? No 05/18/2021 Education Answer Date Recorded Are you interested in more education? Not on nancy e 05/27/2023 Are you concerned about learning? Not on file 05/27/2023 No 05/27/2023 No 05/27/2023 Food Answer Date Recorded Within the past 6 months we worried whether our food would run out before we got money to buy more. Never True 05/18/2021 Within the past 6 months the food we bought just didn't last and we didn't have enough money to get more. Never True Residential Stability Answer Date Recor ded What is your housing situation today? I have ivonne castellano 05/18/2021 How many times have you move d in the past 12 months? Zero (I did not move) 05/18/2021 06 Are you worried that in t he next 2 months, you may not have your own housing to live in? No 05/18/2021 Paying for Meds Answer Date Recorded Do you have trouble paying for medicines? No 05/18/2021 Paying Utility Bills Answer Date Record ed Do you have trouble paying your heating or elect ricity bill? No 05/18/2021 Transportation Answer Date Recorded Has the lack of transportati on kept you from medical appointments or from getting medications? No 05/18/2021 Unemployment Answer Date Recorded Are you currently unemployed or working on a part-time or temporary basis, and looking for work? No 05/18/2021 Digital Access Answer Date Recorded No 10/26/2022 No 10/26/2022 No 10/26/2022 Reliable internet access at home? Not on file 10/26/2022 Device with a working camera? Not on file Sex and Gender Information Value Date Recorded Sex Assigned at Not on file Legal Sex Male 11:39 AM EDT Gender Identity Not on file Sexual Orientation Not on file Occupation Industry Job Start Date Job End Date [employer] Not on file Not on file Not on file Last Filed Vital Signs Vital Sign Reading Time Taken Comments Blood Pressure 144/76 04/22/2022 1:26 PM EST Pulse 77 04/22/2022 1:26 PM EST Temperature 36.7 C (98.1 F) 04/22/2022 1:26 PM EST Respiratory Rate 15 04/22/2022 1:26 PM EST Oxygen Saturation 97% 04/22/2022 1:26 PM EST Inhaled Oxygen Concentration - - Weight 100.7 kg (222 lb) 08/20/2021 8:47 AM EDT Height 177.8 cm (5' 10 ) 08/20/2021 8:47 AM EDT Body Mass Index 31.85 08/20/2021 8:47 AM EDT Plan of Treatment Health Maintenance Due Date Last Done Comments SMOKING Hx and SMOKELESS TOBACCO SCREENING 1974 COLOGUARD 2006 FIT TEST 2006 FOBT 2006 SIGMOIDOSCOPY 2006 VIRTUAL COLONOSCOPY 2006 RSV VACCINE (1 - Risk 50-74 years 1-dose series) 2011 ZOSTER VACCINES (1 of 2) 2011 PNEUMOCOCCAL VACCINES (50+ years) (2 of 2 - PCV) 06/29/2019 06/29/2018 DEPRESSION SCREENING 05/18/2022 05/18/2021 BLOOD PRESSURE 10/20/2022 04/22/2022 INFLUENZA VACCINE (#1) 2024 , 03/12/2019, 03/02/2018, Additional history exists COVID-19 VACCINE ( season) 2025 05/15/2021, 10/12/2020, 09/21/2020 LIPID PANEL 06/12/2026 06/12/2021, 0 11/2020, 03/17/2020 Adult Td,Tdap Booster 03/05/2027 03/05/2017 COLONOSCOPY 06/29/2027 06/29/2017 COLORECTAL CANCER SCREENING 06/29/2027 HEPATITIS C SCREENING Completed 03/17/2020, 020 HIV ONE-TIME SCREENING (18-65 YEARS) Completed 03/17/2020 HEPATITIS A VACCINES Aged Out No long er eligible based on patient's age to complete this topic HIB VACCINES Aged Out No longer eligi ble based on patient's age to complete this topic MENINGOCOCCAL VACCINES (ACWY) Aged Out No longer eligible based on patient's age to complete this topic MENINGOCOCCAL VACCINES (B) Aged Out N o longer eligible based on patient's age to complete this topic Medical Devices Not on file Procedures Procedure Name Priority Date/Time Associated Diagnosis Comments LIPID PANEL Routine 06/08/2020 11:46 AM EST Elevated LDL cholesterol level HEPATITIS C ANTIBODY, QUALITATIVE Routine 03/17/2020 8:28 AM EDT Encounter for routine adult health examination with abnormal findings HM COLONOSCOPY FOR RESULT ENTRY ONLY Routine 06/29/2017 from Last 3 Months or Most Recently Relevant to Health Maintenance Results * (ABNORMAL) Lipid panel (06/08/2020 11:46 AM EST) Pathologist [facility] HDL 47 mg/dL [facility] Comment: Interpretation <40 mg/dL: Low HDL cholesterol (major risk factor for CHD) Greater than or equal to 60 mg/dL: High HDL cholesterol ( negative risk factor for CHD) HDL - cholesterol is affected by a number of factors, e.g. smoking, excerise, hormones, sex and age. CHOLESTEROL 247(H) 0 - 240 mg/dL [facility] TRIGLYCERIDES 235(H) 30 - 160 mg/dL [facility] LDL 153(H) 50 - 129 mg/dL [facility] Comment: LDL levels in terms of risk for coronary heart disease: <100 mg/dL: Optimal 100-129 mg/dL: Near or above optimal 130-159 mg/dL: Borderline high 160-189 mg/dL: High >190 mg/dL: Very High CARDIAC RISK RATIO 5.3(H) 3.4 - 5.0 C [facility] Blood 06/08/2020 11:4 6 AM EST 06/08/2020 11:49 AM EST Tamiko GRIGGS LAB BLOOD ORDERABLES Final Result Performing Organization Address [facility] Co de Phone Number [address] [address] * Hepatitis C antibody, qualitative (03/17/2020 8:28 AM EDT) Pathologist [facility] HCV NON-REACTIV E NON-REACTI VE [facility] Blood 03/17/2020 8:28 AM EDT 03/17/2020 8:30 AM EDT Tamiko GRIGGS LAB BLOOD ORDERABLES Final Result Performing Organization Address [facility] Co de Phone Number [address] [address] * HM COLONOSCOPY FOR RESULT ENTRY ONLY (06/29/2017) [facility] HM Colonoscopy see media 09/05/2019 us Historical Provider MD HEALTH MAINTENANCE Final Result from Last 3 Months or Most Recently Relevant to Health Maintenance Insurance [employer] O [employer] O [employer] HMO [employer] O [employer] NETWORK HMO [employer] NETWORK HMO [employer] NETWORK O Care Teams Life Coach Relationship Specialty Start Date End Date Cherie Tomlinson MD [address] [place] [id number] PCP - General Family Medicine 04/22/22 Additional Source Comments The information contained in this document represents components of the legal health record. It is not the complete legal health record.[facility]
== END 2025-03-24 11:55 | disposition home or self-care (01) ==
PROVIDERS: Visit Provider Hospitalist
DX: R91.8 Other nonspecific abnormal finding of lung field (principal); J41.0 Simple chronic bronchitis; R06.00 Dyspnea, unspecified
CPT/HCPCS: 99214

== ENCOUNTER 2025-06-01 07:20 | Outpatient (REF) | payer OTHER, SELFPAY ==
--- NOTE | ~2025-06-01 | CT_ITS ---
EXAMINATION: CT CHEST WITHOUT IV CONTRAST INDICATION: R91.8 - Other nonspecific abnormal finding of lung field COMPARISON: Comparison is made with the prior examination dated 04/23/2023. TECHNIQUE: Helical CT scan of the chest was performed without intravenous contrast. Coronal and sagittal reformatted images were generated and reviewed. This CT exam was performed with one or more of the following dose reduction techniques: automated exposure control, adjustment of the mA and/or kV according to patient size, use of iterative reconstruction technique. DLP: 219 mGy-cm CHEST: THYROID: The thyroid is unremarkable. LUNGS: There is mild emphysema. There is a calcified granuloma in the right upper lobe (series 5, image 79). A 9 x 4 mm subpleural nodule in the right lower lobe (series 5, image 71) is stable. An additional 10 x 5 mm opacity at the right lung base (series 5, image 112) is stable. This may represent scarring. No new pulmonary nodules are identified. MEDIASTINUM: There is no mediastinal lymphadenopathy. HETAL: Evaluation of the hilar regions is limited by lack of intravenous contrast material. CARDIOVASCULATURE: The heart is mildly enlarged. There is no pericardial effusion. The thoracic aorta is normal in caliber. DEGREE OF CORONARY CALCIFICATION: mild PLEURA: There is no pleural effusion. No pneumothorax. MAIN AIRWAYS: The mainstem bronchi and proximal branches are patent. AXILLA: There is no axillary lymphadenopathy. BONES AND SOFT TISSUES: Unremarkable UPPER ABDOMEN: The visualized portions of the liver, spleen, and adrenals have an unremarkable unenhanced appearance. CT/CT chest wo IV con IMPRESSION: 1. Stable examination. No significant change in right pulmonary nodules as discussed above. 2. Mild emphysema. Because mild emphysema is an independent risk factor for lung cancer, consider entering the patient into a program of yearly lung cancer screening with low dose chest CT. Electronically signed by: Max Adame MD 06/01/2025 07:55 AM EST
--- OUTSIDE RECORDS SUMMARY | 2025-06-01 07:23 | XMS_ITS | Clinical Summary ---
Author Organization [facility] Address [address] [address] Phone Care Team Providers Care Cane Packer Name Role Phone Cherie Tomlinson MD Primary [...] months. Not progressing. Underwent CT abdomen/pelvis at [facility] in Jun. We have not received results [...] history will proceed with CT abdomen/pelvis at [facility] -reviewed he should go to the ED at any time for fever, severe abdominal pain, nausea/vomiting and severe diarrhea and he voiced understanding Encounter for routine adult health examination with abnormal findings 03/10/2020 Assessment & Plan (05/18/2021 1:59 PM EST): Labs: cbc/cmp/lipids/a1c and psa screen ordered Cscope: utd per pt. Will request records from Dr. Powell in [place]. Pt states next due in 2026 Immunizations: tetanus booster due 2026. utd on flu and covid-19 vaccinations. Will request records from pharmacy. Follow up annually for CPE Assessment & Plan (03/10/2020 1:47 PM EDT): Labs: cbc/cmp/lipids/a1c/hiv/hep c and psa screen ordered Cscope: utd per pt. Will request records from Dr. Powell in [place]. Pt states next due in 2026 Immunizations: flu shot given today. Next tetanus due 2026 Follow up annually for CPE S/P rotator cuff surgery 11/24/2019 Assessment & Plan (08/20/2021 5:19 PM EDT): Advised follow up with surgeon at [facility] concerning possible re-injury of the shoulder Assessment [...] Continues to follow with Dr. Cardona at [facility]. Panlobular emphysema 12/14/2018 Assessment & Plan (08/20/2021 5:19 PM EDT): Chronic and stable on anoro. -continues to follow with Dr. Flores, daily release and dupe printer at [facility] and has CT scans through [facility] as well Assessment & Plan (05/18/2021 2:03 PM EST): Chronic and stable on anoro. -continues to follow with Dr. Flores, daily release and dupe printer at [facility] and has CT scans through [facility] as well Assessment & Plan (06/08/2020 12:44 PM EST): stable on anoro. -continues to follow with daily release and dupe printer at [facility] Assessment & Plan (03/10/2020 1:52 PM EDT): Doing well on anoro -continues to follow with daily release and dupe printer at [facility] Assessment & Plan (11/24/2019 9:21 AM EDT): Doing well currently on anoro once daily. Continues to follow with daily release and dupe printer Cervical spinal stenosis 12/14/2018 Assessment & Plan [...] Will request PSSP notes and MRI from [facility] to send over as well. Tear of [...] Health Maintenance Due Date Last Done Comments BLOOD PRESSURE 1961 SMOKING Hx and SMOKELESS TOBACCO SCREENING 1974 COLOGUARD 2006 FIT TEST 2006 FOBT 2006 SIGMOIDOSCOPY 2006 VIRTUAL COLONOSCOPY 2006 RSV VACCINE (1 - Risk 50-74 years 1-dose series) 2011 ZOSTER VACCINES (1 of 2) 2011 PNEUMOCOCCAL VACCINES (50+ years) (2 of 2 - PCV) 06/29/2019 06/29/2018 DEPRESSION SCREENING 05/18/2022 05/18/2021 INFLUENZA VACCINE (#1) 2024 , 03/12/2019, 03/02/2018, Additional history exists COVID-19 VACCINE ( season) 2025 05/15/2021, 10/12/2020, 09/21/2020 LIPID PANEL 06/12/2026 06/12/2021, 11/2020, 03/17/2020 Adult Td,Tdap Booster 03/05/2027 03/05/2017 [...] (ABNORMAL) Lipid panel (06/08/2020 11:46 AM EST) [facility] HDL 47 mg/dL [facility] Comment: Interpretation <40 mg/dL: Low HDL cholesterol (major risk factor for CHD) Greater than or equal to 60 mg/dL: High HDL cholesterol ( negative risk factor for CHD) HDL - cholesterol is affected by a number of factors, e.g. smoking, excerise, hormones, sex and age. CHOLESTEROL 247(H) 0 - 240 mg/dL [facility] TRIGLYCERIDES 235(H) 30 - 160 mg/dL [facility] LDL 153(H) 50 - 129 mg/dL [facility] Comment: LDL levels in terms of risk for coronary heart disease: <100 mg/dL: Optimal 100-129 mg/dL: Near or above optimal 130-159 mg/dL: Borderline high 160-189 mg/dL: High >190 mg/dL: Very High CARDIAC RISK RATIO 5.3(H) 3.4 - 5.0 C [facility] Blood 06/08/2020 11:4 6 AM EST 06/08/2020 11:49 AM EST us Tamiko GRIGGS LAB BLOOD BKR ORDERAB LES Final Result Performing Organization Address City/[facility]/ZIP Co de Phone Number [address] [address] * Hepatitis C antibody, qualitative (03/17/2020 8:28 AM EDT) [facility] HCV NON-REACTIV E NON-REACTI VE [facility] Blood 03/17/2020 8:28 AM EDT 03/17/2020 8:30 AM EDT Tamiko GRIGGS LAB BLOOD BKR ORDERAB LES Final Result Performing Organization Address [facility] Co de Phone Number [address] [address] * HM COLONOSCOPY FOR RESULT ENTRY ONLY (06/29/2017) [facility] HM Colonoscopy see media 09/05/2019 us Historical Provider MD HEALTH MAINTENANCE Final Result from Last 3 Months or Most Recently Relevant to Health Maintenance Insurance [employer] H[employer] H[employer] O [employer] O [employer] H[employer] O [employer] NETWORK H[employer] NETWORK HMO [employer] NETWORK O Care Teams Cane Packer Relationship Specialty Start Date End Date Cherie Tomlinson MD [address] [place] [id number] PCP - General Family Medicine 04/22/22 Additional Source Comments The information contained in this document represents components of the legal health record. It is not the complete legal health record.[facility]
--- OUTSIDE RECORDS SUMMARY | 2025-06-01 07:24 | XMS_ITS | Patient Health Record ---
Author Organization [facility] Address [address] [place] [address] Care Team Providers Care Professor Of Legal Studies Name Role Phone Eulalio Tiwari MD Primary Care Provider Max Booker Unavailable [phone] Reason For Referral No Information Medications Medication SIG (Take, Route, Frequency, Duration) Notes Start Date End Date Status Multivitamin Active Vitamin C Active Aspirin Active Social History Tobacco Use: Social History Observation Description Date Details (start date - stop date) Former Smoker NA - NA Social History Drugs/Alcohol: Social Info Question Answer Notes Alcohol Screen Did you have a drink containing alcohol in the past year? Yes How often did you have a drink containing alcohol in the past year? 2 to 4 times a month (2 points) How many drinks did you have on a typical day when you were drinking in the past year? 1 or 2 drinks (0 point) How often did you have 6 or more drinks on one occasion in the past year? Never (0 point) Points 2 Interpretation Negative Tobacco Use: Social Info Question Answer Notes Tobacco Use/Smoking Patient is a former smoker How long has it been since you last smoked? > 10 years Additional Details Category Social Info Options Details Miscellaneous: Marital status: Occupation: [employer] Caffeine: 2-3 cups per day Section Notes: Nonsmoker for 10 years; occ. alcohol Nonsmoker for 10 years; occ. alcohol Problems Problem Type SNOMED Code ICD Code Onset Dates Problem Status W/U Status Risk Notes Problem Change in bowel habit (25713413) Change in bowel habits (R19.4) Active confirmed Problem Diarrhea (62056678) Diarrhea, unspecified type (R19.7) Active confirmed Plan Of Treatment Future Test Test Name Order Date COLONOSCOPY 06/25/2017 Insurance Providers Payer Name Payer Address Payer Phone Subscriber Number Group Number Insured Name Patient Relationship to Insured Coverage Start Date Coverage End Date [facility] [address] [address] [place] [address] [id number] FRANKELICIA PINEDO Self - patient is the insured Medical (General) History Medical History History ICD Code Denies MT,DM,CVA,Lung disease,renal dise ase C-Diff x 4 after the below d iverticulitis surgery -treated with Vanco and Flagyl--last treated in 12/2016--stools neg for C.diff in 10/2016 and 05/2017---he has seen Dr. Moran Diverticulitis--04/2016 and 05/2016; colonoscopy 07/2016-hyperplastic polyps--surgery in 07/2016--Dr. Powell--then 4 episodes of C.diff Colonoscopy in 06/2017---neg. IBD, neg. adenomas, neg. microscopic colitis, no signs of c.diff colitis Surgical History Surgery Date(Month/Year) Sigmoid colon resection for diverticulit is--Dr. Powell 07/2016 Left hand surgery
--- OUTSIDE RECORDS SUMMARY | 2025-06-01 07:24 | XMS_ITS | Encounter Summary ---
Author Organization [facility] Address [address] [facility] [address] [place] [phone] Phone Care Team Providers Care Call Center Team Leader Name Role Phone Tamiko May Primary Care Provide r Baldemar Gonzalez MD Unavailable [phone] Jordan Hurtado MD Unavailable [phone] Monik Drake MD Primary Care Provid er Cherie Tomlinson MD Primary Care Provider [phone] Encounter Details Date Type Department Care Team (Late st Contact Info) Description 01/05/2020 Procedure Pass [facility], [address] [address] Social History Tobacco Use Types Packs/Day Years [...] documented as of this encounter Care Teams Call Center Team Leader Relationship Specialty Start Date End Date Tamiko May PA [address] [place] [phone] [email or web address] PCP - General 09/01/18 11/01/21 Monik Drake MD [address] [place] [address] [place] [phone] [email or web address] PCP - General Family Medicine 11/02/21 04/21/22 Cherie Tomlinson MD [address] [place] [phone] PCP - General Family Medicine 04/22/22 Baldemar Gonzalez MD [address] [place] [address], [address] [place] [phone] [email or web address] Insurance Assigned Provider 12/05/1811/05/20 Jordan Hurtado MD [address] [place] [address], [address] [place] [phone] [email or web address] Insurance Assigned Provider 11/05/2008/10 documented as of this encounter Additional Source Comments The information contained in this document represents components of the legal health record. It is not the complete legal health record.[facility]
--- OUTSIDE RECORDS SUMMARY | 2025-06-01 07:24 | XMS_ITS | Patient Health Record ---
[facility] Address [address] [place] [address] Care Team Providers Care Social Worker Palliative Care Name Role Phone Eulalio Tiwari MD Primary Care Provider Tamiko Laboy Unavailable [phone] Reason For Referral No Information Medications Medication SIG (Take, Route, Frequency, Duration) Notes Start Date End Date Status Physical Therapy . . Strength, ROM, flexibility and gait training 2-3x/week; Duration: 3-4 weeks 09/04/2015 Not-Taking Night Splint AFO - L1930 as directed 08/07/2015 Not-Taking Aspirin 81 MG 1 tablet Orally Once a day Active [employer] . . .; Duration: . 09/13/2015 Active Social History Tobacco use other than smoking: Question Answer Notes Are you an other tobacco user? No Problems No Known Problems Plan Of Treatment No Information Insurance Providers Payer Name Payer Address Payer Phone Subscriber Number Group Number Insured Name Patient Relationship to Insured Coverage Start Date Coverage End Date [facility] [address] [facility] [place] [id number] Estefany Gomez Spouse - patient is the spouse of the insured Medical (General) History Medical History History ICD Code Hip,and Knee pain Chicken pox Surgical History Surgery Date(Month/Year) tonsillectomy 1959's
--- OUTSIDE RECORDS SUMMARY | 2025-06-01 07:24 | XMS_ITS | Encounter Summary ---
Author Organization [facility] Address [address] [facility] [facility] [address] [place] [phone] Phone Care Team Providers Care Athlete Marketing Agent Name Role Phone Tamiko May Primary Care Provide r Baldemar Gonzalez MD Unavailable [phone] Jordan Hurtado MD Unavailable [phone] Monik Drake MD Primary Care Provid er Cherie Tomlinson MD Primary Care Provider Encounter Details Date Type Department Care Team (Late st Contact Info) Description 01/11/2020 Ancillary Orders [facility],Outside Imaging [address] [place] [address] System, Provider Not In, [place] [address] Social History Tobacco Use Types Packs/Day Years [...] documented as of this encounter Care Teams Athlete Marketing Agent Relationship Specialty Start Date End Date Tamiko May PA [address] [place] [phone] [email or web address] PCP - General 09/01/18 11/01/21 Monik Drake MD [address] [place] [phone] [email or web address] PCP - General Family Medicine 11/02/21 04/21/22 Cherie Tomlinson MD [address] [place] [id number] PCP - General Family Medicine 04/22/22 Baldemar Gonzalez MD [address] [place] [phone] [email or web address] Insurance Assigned Provider 12/05/1811/05/20 Jordan Hurtado MD [address] [place], [place] [id number] [place] [address] [email or web address] Insurance Assigned Provider 11/05/2008/10 documented as of this encounter Additional Source Comments The information contained in this document represents components of the legal health record. It is not the complete legal health record.[facility]
== END 2025-06-01 07:21 | disposition home or self-care (01) ==
LOC: HO.CT 07:20
PROVIDERS: PCP Family Medicine; Visit Provider Hospitalist
DX: R91.8 Other nonspecific abnormal finding of lung field (principal)
CPT/HCPCS: 71250

== ENCOUNTER → 2025-06-01 07:22 | Outpatient (BNV) | payer OTHER, SELFPAY | PROVIDERS: PCP Family Medicine; Visit Provider Radiology Diagnostic Radiology | DX: J43.8 Other emphysema (principal) | CPT/HCPCS: 71250 ==